=== PATIENT | male | born 1945 | race Caucasian/White ===

== ENCOUNTER → 2017-03-05 | Outpatient (CLI) | payer MEDICARE, BC ==
--- NOTE | 2017-03-06 13:10 | XR ---
First digit right hand HISTORY: Trauma and pain 2 views of the first digit right hand There are hypertrophic changes at the metacarpophalangeal joint, interphalangeal joint of the first d igit of the right hand. Alignment and bone mineralization are maintained. There is marginal spurring. No fracture or dislocation. Soft tissue swelling is noted. IMPRESSION: Osteoarthritis.
== END | disposition home or self-care (01) ==
LOC: RADXRYALE 14:59
PROVIDERS: ATTEND Physician Assistant Medical
DX: M19.041 Primary osteoarthritis, right hand (principal)

== ENCOUNTER → 2017-03-13 | Outpatient (CLI) | payer MEDICARE, BC ==
--- NOTE | 2017-03-13 14:30 | XR ---
EXAMINATION TYPE: XR chest 2V DATE OF EXAM: 03/13/2017 COMPARISON: Prior chest x-ray 01/02/2013, CT chest 01/14/2014 HISTORY: MRI clearance, V90.9 TECHNIQUE: Frontal and lateral views of the chest are obtained. FINDINGS: Patient is post median sternotomy. There is no pleural effusion, pneumothorax, or pneumoni a. Heart is enlarged. Pulmonary vascularity and naman are within normal limits. No radiopaque foreign body evident to suggest retained cardiac leads. IMPRESSION: No acute cardiopulmonary process.
== END ==
LOC: RADXRMAIN 12:31
PROVIDERS: ATTEND Orthopaedic Surgery Hand Surgery
DX: Z01.818 Encounter for other preprocedural examination (principal)
CPT/HCPCS: 71020

== ENCOUNTER → 2018-02-02 | Outpatient (CLI) | payer MEDICARE, BC ==
--- NOTE | 2018-02-02 08:43 | MR ---
EXAMINATION TYPE: MR angio head wo con DATE OF EXAM: 02/02/2018 COMPARISON: NONE HISTORY: 72-year-old male Peripheral vascular disease / Diplopia TECHNIQUE: High-resolution 3-D [id number] imaging focusing on the [place] were performed without contrast. Rotational 3-D reconstructions generated on a dedicated independent workstation. FINDINGS: The left vertebral artery is dominant. There is persistent origin of the bilateral posterior cerebral arteries. The right P1 segment i s tortuous and both are slightly hypoplastic, the right more so than the left. Mild atherosclerotic narrowing at the origin of the left posterior communicating artery and moderate irregular atherosclerotic narrowing along the P3 segment left posterior cerebral artery. Reconstructed images suggest moderate focal atherosclerotic narrowing at the origin of bilateral ante rior cerebral arteries. Mild atherosclerotic narrowing along the glenoid segment right internal carotid artery. No arterial occlusion or aneurysmal changes identified. IMPRESSION: 1. 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 2. Persistent origins of the bilateral golf club facer. The P1 segments are slightly hypoplastic, the righ t more so than the left. 3. 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 4. Reconstructed images suggest moderate atherosclerotic narrowing at the origin of the bilateral SHONDA s as well.
== END | disposition home or self-care (01) ==
LOC: RADMRIMAIN 07:52
PROVIDERS: ATTEND Physician Assistant
DX: I66.22 Occlusion and stenosis of left posterior cerebral artery (principal); Q28.3 Other malformations of cerebral vessels; R93.7 Abnormal findings on diagnostic imaging of other parts of musculoskeletal system; E11.59 Type 2 diabetes mellitus with other circulatory complications; H53.2 Diplopia
CPT/HCPCS: 70544

== ENCOUNTER → 2018-07-17 | Outpatient (CLI) | payer MEDICARE, BC ==
--- NOTE | 2018-07-17 09:26 | CT ---
EXAMINATION TYPE: CT sinus wo con DATE OF EXAM: 07/17/2018 COMPARISON: None HISTORY: Chronic sinusitis, infections CT DLP: 440.9 mGycm. Automated Exposure Control for Dose Reduction was Utilized. TECHNIQUE: CT scan of the sinuses is performed without contrast, axial images are obtained, coronal r eformatted images are also reviewed. FINDINGS: The paranasal sinuses including the frontal, ethmoid, sphenoid, and maxillary sinuses bila terally are well-aerated without abnormal opacification. The ostiomeatal complex is patent bilateral ly on the coronal images. Visualized portion of mastoid air cells show no abnormal opacification. The globes are intact bilate rally. There is a nasal septal deviation. Atherosclerotic change of the intracranial vasculature noted. Naso pharynx and oropharynx symmetric as visualized. IMPRESSION: 1. The sinuses are clear and the ostiomeatal complex is patent bilaterally. 2. Nasal septal deviation.
== END | disposition home or self-care (01) ==
LOC: RADCTMAIN 08:40
PROVIDERS: ATTEND Otolaryngology
DX: J34.2 Deviated nasal septum (principal); J32.9 Chronic sinusitis, unspecified
CPT/HCPCS: 70486

== ENCOUNTER 2018-09-03 09:32 | Day surgery (SDC) | payer MEDICARE, BC ==
[2018-08-31 14:16] VITALS: BMI 27.4
[~2018-09-03 09:32] MED LIST: DEXAMETHASONE SOD PHOSPHATE 10 MG/ML 1 ML VIAL IV ONE; DEXAMETHASONE SOD PHOSPHATE 4 MG/ML 1 ML VIAL IV ONE; FAMOTIDINE 20 MG/2 ML VIAL IV ONE; LACTATED RINGERS 1,000 ML IV SCH; LIDOCAINE 1% 20 ML VIAL (10MG/ML) FOR IV START INTRADERMA PRN; ONDANSETRON 4 MG/2 ML VIAL IVP ONE; SCOPOLAMINE 1.5MG/72HR PATCH TRANSDERM ONE
[2018-09-03] MEDS: OXYMETAZOLINE 0.05% NASL SPRAY 1 SPRAY BOTTLE NASAL ONE ×5 (11:09→11:34)
[2018-09-03 11:20] LABS: Glucose,Whole Blood 128 mg/dL (75-99)
[2018-09-03] MEDS ORDERED: DEXAMETHASONE SOD PHOS (MDV) 100 MG/10 ML VIAL ONE (11:36)
[2018-09-03] MEDS ORDERED: SUCCINYLCHOLINE CHLORIDE VIAL 200 MG/10 ML VIAL IV ONE (11:36)
[2018-09-03] MEDS ORDERED: PROPOFOL 10 MG/ML 20 ML VIAL IV ONE (11:36)
[2018-09-03] MEDS ORDERED: MIDAZOLAM 2 MG/2 ML VIAL ONE (11:36)
[2018-09-03] MEDS ORDERED: ePHEDrine SULFATE/0.9% NACL/PF 50 MG/5 ML SYRINGE IV ONE (11:36)
[2018-09-03] MEDS ORDERED: LIDOCAINE 1% INJ 10MG/ML (20 ML MDV) ONE (11:36)
[2018-09-03] MEDS ORDERED: fentaNYL (PF) 50 MCG/ML 2 ML AMP ONE (11:36)
[2018-09-03] MEDS ORDERED: LIDOCAINE 1%-EPI 1:100,000 30 ML VIAL SQ ONE ×2 (12:02)
[2018-09-03] MEDS ORDERED: BUPIVACAIN-EPI 0.25%-1:200,000 30 ML VIAL SQ ONE ×2 (12:02)
[2018-09-03] MEDS ORDERED: BACITRACIN 500 UNIT/GM OINT 28.4 GM TUBE TOPICAL ONE (12:19)
[2018-09-03] MEDS ORDERED: LACTATED RINGERS 1,000 ML IV ONE (12:22)
--- NOTE | 2018-09-03 13:03 | P.OP ---
Date of Procedure: 09/03/18 Preoperative Diagnosis: Deviated nasal septum Bilateral hypertrophy of inferior nasal turbinates Postoperative Diagnosis: Same Procedure(s) Performed: Septoplasty Bilateral submucosal resection of the inferior turbinates with outfracturing compression Anesthesia: MAMEA Surgeon: Adiel Ferrera Estimated Blood Loss (ml): 5 Pathology: other (sinonasal) Condition: stable Disposition: PACU Indications for Procedure: This patient presented to the office with persistent nasal obstruction. CAT scan did not reveal any signs of chronic sinusitis and ALLERGY testing did reveal some pollen ALLERGIES but cannot explain his perennial issues with nasal obstruction. He has large obstructive inferior turbinates deviated nasal septum and surgical correction was recommended as she has failed cortisone nasal sprays. Operative Findings: Severe deviated septum with large obstructive inferior turbinates. Septum is deviated to the right over 90%. Description of Procedure: DESCRIPTION OF OPERATION: This patient was taken to the operative room and placed in the supine position. A general inhalation anesthetic was administered to the patient by the department of anesthesia with a functioning IV line in place. The patient was monitored throughout the entire case by the department of anesthesia. The eyes were taped shut for protection. The patient was placed in a slight reverse Trendelenburg position. The patient had previously utilize Afrin nasal spray preoperatively. The nose was evaluated and the septum lateral nasal wall and inferior turbinates were injected with lidocaine 1% with epinephrine 1 100,000 bilaterally. Approximately 10 minutes were allowed wait for full vasoconstrictive effects to take place. At this point a caudal incision was made over the caudal portion of the left septum down to the mucoperichondrium. A mucoperichondrial flap was elevated on the left side and dissection was carried with use of tunnels posteriorly. We then made a crossover incision through the cartilage to the contralateral side and for the mucoperichondrial flap development was performed to the extent of visualization on the contralateral side. After the cartilage was freed with use of several crosshatching incisions and removal of some redundant strips of septal cartilage, the septum was straightened and placed back in the midline. The septum was sutured fixated to the ovarian groove. Excellent straightening occurred and the septum was visibly straight. Incision was closed with a 40 rapid Vicryl. We utilized a running nonlocking fashion for closure of the incision. A quilting stitch was used to reapproximate the septal flaps with use of a 40 rapid Vicryl. Intranasal splints were inserted and fixated at the end of the case. We utilized Tinoco nasal splints. There will be removed and the patient returns to the office. Attention was then paid to the inferior turbinates. The bilateral inferior turbinates were hypertrophic and obstructive. We entered the anterior portion of the inferior turbinates with use of a microdebrider. We remove bone and submucosal elements with use of a microdebrider bilaterally. The inferior turbinates underwent a submucosal resection with removal of submucosal tissue and bone. We obtained a much better and normal in size for breathing. The inferior turbinates were then outfractured and compressed with a DocTreees nasal elevator. Excellent airway was obtained and was symmetric bilaterally. No bleeding was encountered.
[2018-09-03 13:12] VITALS: TEMP 96.9
[2018-09-03] MEDS: HYDROmorphone 1 MG/ML 1 ML SYRINGE IVP PRN ×2 (13:29→13:53)
[2018-09-03 13:39] LABS: Glucose,Whole Blood 152 mg/dL (75-99)
[2018-09-03] MEDS ORDERED: METOPROLOL TARTRATE 5 MG/5 ML VIAL IVP ONE (13:45)
[2018-09-03] MEDS ORDERED: hydrALAZINE HCL 20 MG/ML 1 ML VIAL IVP ONE (14:08)
[2018-09-03] MEDS ORDERED: HYDROmorphone 1 MG/ML 1 ML SYRINGE IVP ONE (14:45)
[2018-09-03 15:08] VITALS: RESP 16
[2018-09-03 16:23] VITALS: BP 132/63; PULSE 90
== END 2018-09-03 16:35 | disposition home or self-care (01) ==
LOC: OR 09:32
PROVIDERS: ATTEND Otolaryngology
DX: J34.2 Deviated nasal septum (principal); J34.3 Hypertrophy of nasal turbinates; J30.1 Allergic rhinitis due to pollen; I25.10 Atherosclerotic heart disease of native coronary artery without angina pectoris; E78.5 Hyperlipidemia, unspecified; E11.51 Type 2 diabetes mellitus with diabetic peripheral angiopathy without gangrene; I10 Essential (primary) hypertension; Z79.4 Long term (current) use of insulin; Z79.899 Other long term (current) drug therapy; Z95.5 Presence of coronary angioplasty implant and graft; Z95.1 Presence of aortocoronary bypass graft; Z86.73 Personal history of transient ischemic attack (TIA), and cerebral infarction without residual deficits
CPT/HCPCS: 88300; 30520; 30140; J2250; J0330; J0360; J1100 ×2; J2405; J2001; J3010; J1170; J2704

== ENCOUNTER 2019-11-30 07:00 | Day surgery (SDC) | payer MEDICARE, BC ==
[2019-11-29 08:55] VITALS: BMI 28.7
[~2019-11-30 07:00] MED LIST changes: -DEXAMETHASONE SOD PHOSPHATE 10 MG/ML 1 ML VIAL IV ONE; -DEXAMETHASONE SOD PHOSPHATE 4 MG/ML 1 ML VIAL IV ONE; -FAMOTIDINE 20 MG/2 ML VIAL IV ONE; -ONDANSETRON 4 MG/2 ML VIAL IVP ONE; -SCOPOLAMINE 1.5MG/72HR PATCH TRANSDERM ONE
[2019-11-30 07:20] VITALS: TEMP 97.5
[2019-11-30 07:23] LABS: Glucose,Whole Blood 163 mg/dL (75-99)
[2019-11-30] MEDS ORDERED: PROPOFOL 10 MG/ML 20 ML VIAL IV ONE (07:30)
[2019-11-30] MEDS ORDERED: LIDOCAINE 1% INJ 10MG/ML (20 ML MDV) ONE (07:30)
--- NOTE | 2019-11-30 08:11 | P.PCN ---
Date of Procedure: 11/30/19 Description of Procedure: BRIEF HISTORY: Patient is a 74-year-old male presents for outpatient colonoscopy for screening for malignant neoplasm colon. Last colonoscopy approximately 7 years ago. He does report a history of polyps in the past. Denies any change in bowel habits, abdominal pain or family history of colon cancer. PROCEDURE PERFORMED: Colonoscopy with polypectomy. PREOPERATIVE DIAGNOSIS: Screening for malignant neoplasm of the colon, last colonoscopy 7 years ago with patient reporting a prior history of polyps. ESTIMATED BLOOD LOSS: Minimal. IV sedation per Anesthesia. PROCEDURE: After informed consent was obtained, the patient, was brought into the endoscopy unit. IV sedation was administered by Anesthesia under continuous monitoring. Digital rectal examination was normal. Initially the Olympus CF-190 flexible video colonoscope was then inserted in the rectum, gradually advanced into the cecum without any difficulty. Careful examination was performed as the scope was gradually being withdrawn. Ileocecal valve and the appendiceal orifice were visualized and appeared normal. Prep was excellent. Mucosa of the cecum, ascending colon, transverse colon, descending colon, sigmoid colon, and rectum appeared normal. Multiple small mouth diverticula in the left colon. 4 mm ascending colon polyp removed with cold snare polypectomy. 4 mm sigmoid colon polyp removed with cold snare polypectomy. Retroflexion was performed in the rectum and no lesions were seen, low-grade internal hemorrhoids noted. The patient tolerated the procedure well. IMPRESSION: 2 polyps removed from the ascending colon and sigmoid colon with cold snare polypectomy. Mild left colonic diverticulosis. RECOMMENDATIONS: Findings of this examination were discussed with the patient and his . Okay to resume diet. Okay to resume medications. Would recommend fiber suppl ementation in the setting of diverticulosis. Await pathology from polypectomies. Would recommend repeat colonoscopy in 7 years pending pathology from polypectomies.
[2019-11-30 08:13] VITALS: RESP 16
[2019-11-30 08:37] VITALS: BP 167/78; PULSE 67
== END 2019-11-30 09:32 | disposition home or self-care (01) ==
LOC: ORWHC2ENDO 07:00
PROVIDERS: ATTEND Internal Medicine
DX: Z12.11 Encounter for screening for malignant neoplasm of colon (principal); D12.2 Benign neoplasm of ascending colon; D12.5 Benign neoplasm of sigmoid colon; K57.30 Diverticulosis of large intestine without perforation or abscess without bleeding; K64.8 Other hemorrhoids; Z86.010 Personal history of colon polyps; I10 Essential (primary) hypertension; E78.5 Hyperlipidemia, unspecified; I73.9 Peripheral vascular disease, unspecified; G47.33 Obstructive sleep apnea (adult) (pediatric); E11.9 Type 2 diabetes mellitus without complications; K21.9 Gastro-esophageal reflux disease without esophagitis; I25.2 Old myocardial infarction; Z79.899 Other long term (current) drug therapy; Z79.4 Long term (current) use of insulin; Z95.1 Presence of aortocoronary bypass graft; Z98.890 Other specified postprocedural states; Z86.73 Personal history of transient ischemic attack (TIA), and cerebral infarction without residual deficits
CPT/HCPCS: 88305; 45385; J2001; J2704

== ENCOUNTER 2022-08-05 19:02 | Inpatient (IN) | payer MEDICARE, BC ==
[2022-08-05 19:36] LABS: Basophils % (A) 1 %; Eosinophils # (A) 0.2 k/uL (0-0.7); Eosinophils % (A) 3 %; HCT 42.8 % (39.0-53.0); HGB 13.7 gm/dL (13.0-17.5); Hypochromasia Slight; Lymphocytes # (A) 1.1 k/uL (1.0-4.8); Lymphocytes % (A) 17 %; MCHC 32.1 g/dL (31.0-37.0); MCV 90.6 fL (80.0-100.0); Mean Platelet Volume 8.9; Monocytes # (A) 0.4 k/uL (0-1.0); Monocytes % (A) 6 %; Neutrophils # (A) 4.7 k/uL (1.3-7.7); Neutrophils % (A) 72 %; Platelet Count 207 k/uL (150-450); RBC 4.72 m/uL (4.30-5.90); RDW 14.5 % (11.5-15.5); WBC 6.6 k/uL (3.8-10.6)
[2022-08-05 19:45] LABS: Albumin 3.6 g/dL (3.5-5.0); Calcium 8.6 mg/dL (8.4-10.2); Magnesium 2.2 mg/dL (1.6-2.3); Potassium 4.2 mmol/L (3.5-5.1); Total Bilirubin 1.1 mg/dL (0.2-1.3); Total Protein 6.2 g/dL (6.3-8.2)
[2022-08-05 19:56] LABS: INR 1.2 (<1.2); Partial Thromboplastin Time 24.8 sec (22.0-30.0); Prothrombin Time 12.4 sec (9.0-12.0)
--- NOTE | 2022-08-05 20:03 | ED ---
General Adult HPI - General Source: patient, RN notes reviewed, old records reviewed Mode of arrival: ambulatory Limitations: no limitations <Edgardo Parker - Last Filed: 08/05/22 20:55> <Edgardo Zaidi - Last Filed: 08/05/22 22:43> - General Chief complaint: Chest Pain Stated complaint: chest tightness Time Seen by Provider: 08/05/22 19:30 - History of Present Illness Initial comments: This is a 77 her old male with a past medical history significant for bypass surgery, stroke, diabetes, high cholesterol. Patient comes in today because for the last 10 days he's having difficulty breathing with any exertion. Patient states she's also had some chest tightness with exertion. Patient denies any actual chest pain or discomfort. Patient denies any recent fever chills or cough. Patient states he has been under quite a bit of stress lately but that does not explain the fact that he is completely short of breath anytime he exerts himself. Patient denies any abdominal pain. Patient denies nausea vomiting or diarrhea. Patient denies any lightheadedness or dizziness. Patient denies headache patient denies numbness weakness. Patient denies any lower extremity edema or calf tenderness. Patient denies any recent long trips or travel. (Edgardo Parker) - Related Data Home Medications Medication Instructions Recorded Confirmed Insulin Glargine [Lantus] 20 unit SQ HS PRN 11/24/14 08/05/22 Losartan [Cozaar] 25 mg PO DAILY 11/24/14 08/05/22 Metoprolol Tartrate [Lopressor] 25 mg PO BID 11/24/14 08/05/22 metFORMIN HCL [Glucophage] 1,000 mg PO AC-BID 11/24/14 08/05/22 Fenofibrate 160 mg PO DAILY 08/31/18 08/05/22 Dapagliflozin Propanediol [Farxiga] 10 mg PO DAILY@1200 08/05/22 08/05/22 Dextrose Chew [Glucose Chew Tab] 4 gm PO ONCE PRN 08/05/22 08/05/22 INSULIN ASPART (NovoLOG) [NovoLOG See Protocol SQ AC-TID 08/05/22 08/05/22 (formulary)] glipiZIDE [Glucotrol] 10 mg PO AC-BID 08/05/22 08/05/22 Allergies Allergy/AdvReac Type Severity Reaction Status Date / Time No Known Allergies Allergy Verified 08/05/22 21:11 Review of Systems ROS Other: All systems not noted in ROS Statement are negative. <Edgardo Parker - Last Filed: 08/05/22 20:55> ROS Other: All systems not noted in ROS Statement are negative. <Edgardo Zaidi - Last Filed: 08/05/22 22:43> ROS Statement: Those systems with pertinent positive or pertinent negative responses have been documented in the HPI. Past Medical History Past Medical History: CVA/TIA, Diabetes Mellitus, GERD/Reflux, Hyperlipidemia, Hypertension, Myocardial Infarction ([place]), Sleep Apnea/CPAP/BIPAP Additional Past Medical History / Comment(s): CVA 2012-NO RESIDUAL, PVD Last Myocardial Infarction Date:: 2012 History of Any Multi-Drug Resistant Organisms: None Reported Past Surgical History: Coronary Bypass/CABG, Heart Catheterization, Joint Replacement, Orthopedic Surgery Additional Past Surgical History / Comment(s): LT CAROTID ENDARTERECTOMY,CABG-3 VESSEL,GEORGE LOWER EXT VASCULAR PROCEDURES, SLEEP APNEA SURGERY,NASAL SURGERY,LT GREAT TOE JT REPLACEMENT,DENTAL IMPLANTS,ORIF LT ANKLE-HARDWARE LATER REMOVED, COLONOSCOPY, BILAT CATARACTS REMOVED-LENS IMPLANT Past Anesthesia/Blood Transfusion Reactions: No Reported Reaction Past Psychological History: No Psychological Hx Reported Smoking Status: Never smoker Past Alcohol Use History: Rare Past Drug Use History: None Reported - Past Family History Brother(s) Family Medical History: Cancer Additional Family Medical History / Comment(s): BRAIN <Edgardo Parker - Last Filed: 08/05/22 20:55> General Exam Limitations: no limitations <Edgardo Parker - Last Filed: 08/05/22 20:55> Limitations: no limitations General appearance: alert, in no apparent distress, anxious Head exam: Present: atraumatic, normocephalic, normal inspection Eye exam: Present: normal appearance, PERRL, EOMI. Absent: scleral icterus, conjunctival injection, periorbital swelling ENT exam: Present: normal exam, mucous membranes moist Neck exam: Present: normal inspection. Absent: tenderness, meningismus, lymphadenopathy Respiratory exam: Present: normal lung sounds bilaterally, rales, decreased breath sounds ([place]). Absent: respiratory distress, wheezes, rhonchi, stridor Cardiovascular Exam: Present: regular rate, normal rhythm, normal heart sounds. Absent: systolic murmur, diastolic murmur, rubs, gallop, clicks GI/Abdominal exam: Present: soft, normal bowel sounds. Absent: distended, tenderness, guarding, rebound, rigid Extremities exam: Present: normal inspection, full ROM, normal capillary refill. Absent: tenderness, pedal edema, joint swelling, calf tenderness Back exam: Present: normal inspection Neurological exam: Present: alert, oriented X3, CN II-XII intact Psychiatric exam: Present: normal affect, normal mood Skin exam: Present: warm, dry, intact, normal color. Absent: rash <Edgardo Zaidi - Last Filed: 08/05/22 22:43> - General Exam Comments Initial Comments: GENERAL: Patient is well-developed and well-nourished. Patient is nontoxic and well- hydrated and is in no acute distress. ENT: Neck is soft and supple. No significant lymphadenopathy is noted. Oropharynx is clear. Moist mucous membranes. Neck has full range of motion without eliciting any pain. EYES: The sclera were anicteric and conjunctiva were pink and moist. Extraocular movements were intact and pupils were equal round and reactive to light. Eyelids were unremarkable. PULMONARY: Unlabored respirations. Good breath sounds bilaterally. No audible rales rhonchi or wheezing was noted. CARDIOVASCULAR: There is a regular rate and rhythm without any murmurs gallops or rubs. ABDOMEN: Soft and nontender with normal bowel sounds. No palpable organomegaly was noted. There is no palpable pulsatile mass. SKIN: Skin is clear with no lesions or rashes and otherwise unremarkable. NEUROLOGIC: Patient is alert and oriented x3. Cranial nerves II through XII are grossly intact. Motor and sensory are also intact. Normal speech, volume and content. Symmetrical smile. MUSCULOSKELETAL: Normal extremities with adequate strength and full range of motion. No lower extremity swelling or edema. No calf tenderness. LYMPHATICS: No significant lymphadenopathy is noted PSYCHIATRIC: Normal psychiatric evaluation. (Edgardo Parker) Course <Edgardo Zaidi - Last Filed: 08/05/22 22:43> Vital Signs 08/05/22 08/05/22 08/05/22 19:07 20:24 20:43 Temperature 97.6 F Pulse Rate 92 160 H 90 Respiratory 20 20 18 Rate Blood Pressure 138/83 162/121 152/88 O2 Sat by Pulse 98 98 98 Oximetry - Reevaluation(s) Reevaluation #1: 08/05/22 22:40 Medical record is reviewed (Edgardo Zaidi) Reevaluation #2: 08/05/22 22:40 Patient informed results and questions are answered (Edgardo Zaidi) Reevaluation #3: 08/05/22 22:40 patient has no recurrent SVT here in the ER (Edgardo Zaidi) - Consultations Consultation #1: Spoke with [facility] [place] who agree to admit this patient (Edgardo Zaidi) Medical Decision Making - Lab Data Result diagrams: 08/05/22 19:26 08/05/22 19:26 <Edgardo Parker - Last Filed: 08/05/22 20:55> - Lab Data Result diagrams: 08/05/22 19:26 08/05/22 19:26 - Radiology Data Radiology results: report reviewed (CT chest negative for PE positive bilateral effusion and possible infiltrate), image reviewed <Edgardo Zaidi - Last Filed: 08/05/22 22:43> - Medical Decision Making EKG shows sinus rhythm with PVCs at 91 bpm GA interval is 141 QRSs 110 QT interval 434 QTC is 434 patient's EKG also shows PVCs. Patient has T-wave inversions in 23 and aVF as well as V5 and V6. Patient has no old EKG to compare to. Patient started having some discomfort while lying in bed soon EKG was interpreted by me. EKG shows supraventricular tachycardia at rate of 158 bpm QRS is 170 QT interval is 285 QTC is 373. There is T-wave inversions in leads V5 and V6 and in II, III, and F aVF Patient was in what appeared to be SVT at 160 beats a minute and a gave the patient 6 mg of adenosine slowed the heart down for a few seconds but it sped right back up to 160. I gave the patient 12 mg of adenosine slowed the heart down he was in a sinus rhythm he continued to display T-wave inversions in V5 and V6 II, III, and F aVF. A repeat EKG was done and interpreted by myself EKG showed a sinus rhythm 80 bpm GA interval is on a 43 QRSs 100 a QT interval 373 QTC is 419. Patient's EKG shows no ST segment elevation but does show T-wave inversions in V5 and V6 II, III, and F aVF Patient continues to feel a little tightness in the chest and shortness of breath just as he did when he came in. (Edgardo Parker) 77 male presents here today for evaluation. Patient presented for evaluation of shortness of breath chest pain exertional dyspnea. Episode of SVT here in the emergency prior. Chest x-ray showing effusions with evidence of CHF. Patient will be admitted for cardiology evaluation and treatment (Edgardo Zaidi) - Lab Data Lab Results 08/05/22 08/05/22 08/05/22 Range/Units 19:26 19:26 19:26 WBC 6.6 (3.8-10.6) k/uL RBC 4.72 (4.30-5.90) m/uL Hgb 13.7 (13.0-17.5) gm/dL Hct 42.8 (39.0-53.0) % MCV 90.6 (80.0-100.0) fL MCH 29.0 (25.0-35.0) pg MCHC 32.1 (31.0-37.0) g/dL RDW 14.5 (11.5-15.5) % Plt Count 207 (150-450) k/uL MPV 8.9 Neutrophils % 72 % Lymphocytes % 17 % Monocytes % 6 % Eosinophils % 3 % Basophils % 1 % Neutrophils # 4.7 (1.3-7.7) k/uL Lymphocytes # 1.1 (1.0-4.8) k/uL Monocytes # 0.4 (0-1.0) k/uL Eosinophils # 0.2 (0-0.7) k/uL Basophils # 0.0 (0-0.2) k/uL Hypochromasia Slight PT 12.4 H (9.0-12.0) sec INR 1.2 H (<1.2) APTT 24.8 (22.0-30.0) sec D-Dimer (<0.60) mg/L FEU Sodium 140 (137-145) mmol/L Potassium 4.2 (3.5-5.1) mmol/L Chloride 107 (98-107) mmol/L Carbon Dioxide 21 L (22-30) mmol/L Anion Gap 12 mmol/L BUN 33 H (9-20) mg/dL Creatinine 1.13 (0.66-1.25) mg/dL Est GFR (CKD-EPI)AfAm 73 (>60 ml/min/1.73 sqM) Est GFR (CKD-EPI)NonAf 63 (>60 ml/min/1.73 sqM) Glucose 273 H (74-99) mg/dL Calcium 8.6 (8.4-10.2) mg/dL Magnesium 2.2 (1.6-2.3) mg/dL Total Bilirubin 1.1 (0.2-1.3) mg/dL AST 51 (17-59) U/L ALT 54 H (4-49) U/L Alkaline Phosphatase 97 (38-126) U/L Troponin I (0.000-0.034) ng/mL NT-Pro-B Natriuret Pep pg/mL Total Protein 6.2 L (6.3-8.2) g/dL Albumin 3.6 (3.5-5.0) g/dL Coronavirus (PCR) (Not Detectd) 08/05/22 08/05/22 08/05/22 Range/Units 19:26 19:26 19:40 WBC (3.8-10.6) k/uL RBC (4.30-5.90) m/uL Hgb (13.0-17.5) gm/dL Hct (39.0-53.0) % MCV (80.0-100.0) fL MCH (25.0-35.0) pg MCHC (31.0-37.0) g/dL RDW (11.5-15.5) % Plt Count (150-450) k/uL MPV Neutrophils % % Lymphocytes % % Monocytes % % Eosinophils % % Basophils % % Neutrophils # (1.3-7.7) k/uL Lymphocytes # (1.0-4.8) k/uL Monocytes # (0-1.0) k/uL Eosinophils # (0-0.7) k/uL Basophils # (0-0.2) k/uL Hypochromasia PT (9.0-12.0) sec INR (<1.2) APTT (22.0-30.0) sec D-Dimer 1.63 H (<0.60) mg/L FEU Sodium (137-145) mmol/L Potassium (3.5-5.1) mmol/L Chloride (98-107) mmol/L Carbon Dioxide (22-30) mmol/L Anion Gap mmol/L BUN (9-20) mg/dL Creatinine (0.66-1.25) mg/dL Est GFR (CKD-EPI)AfAm (>60 ml/min/1.73 sqM) Est GFR (CKD-EPI)NonAf (>60 ml/min/1.73 sqM) Glucose (74-99) mg/dL Calcium (8.4-10.2) mg/dL Magnesium (1.6-2.3) mg/dL Total Bilirubin (0.2-1.3) mg/dL AST (17-59) U/L ALT (4-49) U/L Alkaline Phosphatase (38-126) U/L Troponin I 0.027 (0.000-0.034) ng/mL NT-Pro-B Natriuret Pep 4520 pg/mL Total Protein (6.3-8.2) g/dL Albumin (3.5-5.0) g/dL Coronavirus (PCR) (Not Detectd) 08/05/22 Range/Units 20:14 WBC (3.8-10.6) k/uL RBC (4.30-5.90) m/uL Hgb (13.0-17.5) gm/dL Hct (39.0-53.0) % MCV (80.0-100.0) fL MCH (25.0-35.0) pg MCHC (31.0-37.0) g/dL RDW (11.5-15.5) % Plt Count (150-450) k/uL MPV Neutrophils % % Lymphocytes % % Monocytes % % Eosinophils % % Basophils % % Neutrophils # (1.3-7.7) k/uL Lymphocytes # (1.0-4.8) k/uL Monocytes # (0-1.0) k/uL Eosinophils # (0-0.7) k/uL Basophils # (0-0.2) k/uL Hypochromasia PT (9.0-12.0) sec INR (<1.2) APTT (22.0-30.0) sec D-Dimer (<0.60) mg/L FEU Sodium (137-145) mmol/L Potassium (3.5-5.1) mmol/L Chloride (98-107) mmol/L Carbon Dioxide (22-30) mmol/L Anion Gap mmol/L BUN (9-20) mg/dL Creatinine (0.66-1.25) mg/dL Est GFR (CKD-EPI)AfAm (>60 ml/min/1.73 sqM) Est GFR (CKD-EPI)NonAf (>60 ml/min/1.73 sqM) Glucose (74-99) mg/dL Calcium (8.4-10.2) mg/dL Magnesium (1.6-2.3) mg/dL Total Bilirubin (0.2-1.3) mg/dL AST (17-59) U/L ALT (4-49) U/L Alkaline Phosphatase (38-126) U/L Troponin I (0.000-0.034) ng/mL NT-Pro-B Natriuret Pep pg/mL Total Protein (6.3-8.2) g/dL Albumin (3.5-5.0) g/dL Coronavirus (PCR) Not Detected (Not Detectd) Critical Care Time Critical Care Time: Yes Total Critical Care Time: 35 <Edgardo Parker - Last Filed: 08/05/22 20:55> Disposition <Edgardo Parker - Last Filed: 08/05/22 20:55> Is patient prescribed a controlled substance at d/c from ED?: No Time of Disposition: 22:50 <Edgardo Zaidi - Last Filed: 08/05/22 22:43> Clinical Impression: SVT (supraventricular tachycardia), Chest pain, CHF (congestive heart failure), Bilateral pleural effusion Disposition: ADMITTED IP TO THIS HOSP Condition: Fair Referrals: Maximo Renteria DO [Primary Care Provider] - 1-2 days
--- NOTE | 2022-08-05 20:15 | XR ---
EXAMINATION TYPE: XR chest 2V DATE OF EXAM: 08/05/2022 COMPARISON: 03/13/2017 HISTORY: Chest pain TECHNIQUE: 2 views FINDINGS: There is some blunting left posterior phrenic angle. There is mild blunting right costophre aura angle. There is minimal pulmonary congestion. Heart is slightly enlarged. There are chest leads. Bony thorax is intact. IMPRESSION: There are small bilateral pleural effusions and mild congestion and consistent with conge stive heart failure which is new compared to the old exam.
[2022-08-05] MEDS ORDERED: ADENOSINE 3 MG/ML 2 ML VIAL IVP STA ×2 (21:01)
--- NOTE | 2022-08-05 21:41 | CT ---
EXAMINATION TYPE: CT chest angio for PE DATE OF EXAM: 08/05/2022 COMPARISON: 01/14/2014 HISTORY: chest pain/ SOB and elevated D-dimer. CT DLP: 505.3 mGycm Automated exposure control for dose reduction was used. CONTRAST: Performed with IV Contrast, patient injected with 80 mL of Isovue 370. There are 3-D post processed images. There is extensive interstitial infiltrates in both lungs. There is right side mild to moderate pleur al effusion. There is some atelectasis at both lung bases. Heart is borderline enlarged. No pericardi al effusion. No filling defect seen in the pulmonary arteries. Thoracic aorta shows no aneurysm or di ssection. The ascending aorta measures 3.9 cm. The thoracic spine is intact. There is degenerative sp urring throughout the thoracic spine. There are sternal wires. There is single large calcified gallstone. There is atherosclerotic vascular calcification. IMPRESSION: Bilateral pleural effusions with pulmonary predominately interstitial infiltrates. There is some mild atelectasis at the lung bases. Mild cardiomegaly appears new compared to old exam. No evidence of pulmonary embolism. Lung disease is mostly new compared to old exam.
[2022-08-05] MEDS ORDERED: ONDANSETRON 4 MG/2 ML VIAL IVP PRN (22:36)
[2022-08-05] MEDS ORDERED: MORPHINE SULFATE 4 MG/ML SYRINGE IV PRN (22:36)
[2022-08-05] MEDS ORDERED: NALOXONE 0.4 MG/ML 1 ML VIAL IV PRN (22:36)
[2022-08-06 06:07] LABS: Basophils % (A) 1 %; Eosinophils # (A) 0.2 k/uL (0-0.7); Eosinophils % (A) 3 %; HCT 42.3 % (39.0-53.0); HGB 13.5 gm/dL (13.0-17.5); Hypochromasia Moderate; Lymphocytes # (A) 1.4 k/uL (1.0-4.8); Lymphocytes % (A) 25 %; MCH 29.4 pg (25.0-35.0); MCHC 31.9 g/dL (31.0-37.0); MCV 92.3 fL (80.0-100.0); Mean Platelet Volume 8.5; Monocytes # (A) 0.4 k/uL (0-1.0); Monocytes % (A) 7 %; Neutrophils # (A) 3.5 k/uL (1.3-7.7); Neutrophils % (A) 62 %; Platelet Count 201 k/uL (150-450); RBC 4.58 m/uL (4.30-5.90); RDW 14.5 % (11.5-15.5); WBC 5.7 k/uL (3.8-10.6)
[2022-08-06 06:19] LABS: Albumin 3.5 g/dL (3.5-5.0); Calcium 8.5 mg/dL (8.4-10.2); Magnesium 2.2 mg/dL (1.6-2.3); Phosphorus 3.5 mg/dL (2.5-4.5); Potassium 4.3 mmol/L (3.5-5.1); Total Bilirubin 0.8 mg/dL (0.2-1.3)
[2022-08-06] MEDS: SODIUM CHLORIDE 0.9% 1,000 ML IV SCH ×2 (07:35→23:56)
[2022-08-06 08:43] LABS: Glucose,Whole Blood 118 mg/dL (70-110)
[2022-08-06] MEDS ORDERED: FUROSEMIDE 10 MG/ML 4 ML VIAL IV SCH (10:56)
[2022-08-06] MEDS ORDERED: METOPROLOL TARTRATE 25 MG TAB PO SCH (11:00)
[2022-08-06] MEDS: METOPROLOL TARTRATE 50 MG TAB PO SCH ×2 (11:39→21:12)
[2022-08-06] MEDS: FUROSEMIDE 10 MG/ML 2 ML VIAL IV SCH ×2 (11:39→21:12)
[2022-08-06] MEDS: LOSARTAN 25 MG TAB PO SCH (11:39)
[2022-08-06 11:47] LABS: Glucose,Whole Blood 197 mg/dL (70-110)
[2022-08-06] MEDS ORDERED: DEXTROSE 50% SYRINGE 50 ML IVP PRN ×2 (11:51)
[2022-08-06] MEDS: FENOFIBRATE 160 MG TAB PO SCH (12:05)
[2022-08-06] MEDS: DAPAGLIFLOZIN PROPANEDIOL 10 MG TABLET PO SCH (12:06)
[2022-08-06] MEDS: INSULIN ASPART (NovoLOG) 100 UNIT/ML VIAL SQ SCH ×3 (12:10→20:45)
--- NOTE | 2022-08-06 12:51 | P.CRDCN ---
History of Present Illness History of present illness: HISTORY OF PRESENT ILLNESS: This is a 77-year-old male with a past medical history significant for coronary artery disease with previous three-vessel CABG in 2013, CVA, left CEA, hypertension, hyperlipidemia, diabetes, and peripheral vascular disease with previous intervention to his lower extremities. Patient follows with a Dr. Romero. We have been asked to see the patient in consultation for SVT. Patient examined at the bedside. Patient states over the last week he has felt very tired and weak. He reports not having any energy. He states he has had some intermittent chest pains as well. He reports feeling SOB with exertion such as walking up a flight of stairs. He does not recall feeling his heart racing. His family member at the bedside reports that yesterday he broke out into a cold sweat and had the chills. The patient came to the ER for further evaluation. He was found to be in SVT. He received adenosine x 2 with conversion to sinus mechanism. He reports having a stress test and echo recently at Dr. Romero office which he reports was normal. * EKG reveals SVT. Repeat EKG reveals sinus mechanism. * Chest xray small bilateral pleural effusions and mild congestion consistent with congestive heart failure which is new compared to old exam * Chest CT: Negative for PE * Laboratory data: WBC 5.7. Hemoglobin 13.5. Platelet count 201. Sodium 141. Potassium 4.3. BUN 27. Creatinine 1.1. TSH 2.610. Troponin negative 3. ProBNP 4520 * Current home cardiac medications include metoprolol tartrate 25 mg twice a day, losartan 25 mg daily, fenofibrate 160 mg daily, and Farxiga 10mg daily REVIEW OF SYSTEMS: At the time of my exam: CONSTITUTIONAL: Denies fever or chills. HEENT: Denies blurred vision, vision changes, or eye pain. Denies hemoptysis CARDIOVASCULAR: Denies chest pain. Denies orthopnea. Denies PND. Denies palpitations RESPIRATORY: Denies shortness of breath. GASTROINTESTINAL: Denies abdominal pain. Denies nausea or vomiting. HEMATOLOGIC: Denies bleeding disorders. GENITOURINARY: Denies any blood in urine. SKIN: Denies pruitis. Denies rash. PHYSICAL EXAM: VITAL SIGNS: Reviewed. GENERAL: Well-developed in no acute distress. HEENT: Head is normocephalic. Pupils are equal, round. Sclerae anicteric. Mucous membranes of the mouth are moist. Neck supple. No JVD or thyromegaly LUNGS: Respirations even and unlabored. Lungs diminished at the bases with a few crackles. HEART: Regular rate and rhythm. S1 and S2 heard. ABDOMEN: Soft. Nondistended. Nontender. EXTREMITIES: Normal range of motion. No clubbing or cyanosis. Peripheral pulses intact. No lower extremity edema NEUROLOGIC: Awake and alert. Oriented x 3. 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 Romero Begin IV lasix 20mg Q12 hours Daily weights, accurate I&O, and monitoring of kidney function Resume home cardiac medications Increase metoprolol to 50mg BID Add aspirin 81mg daily Check lipid panel Check TSH Further recommendations pending patient course Nurse practitioner note has been reviewed by physician. Signing provider agrees with the documented findings, assessment, and plan of care. Past Medical History Past Medical History: CVA/TIA, Diabetes Mellitus, GERD/Reflux, Hyperlipidemia, Hypertension, Myocardial Infarction ([place]), Sleep Apnea/CPAP/BIPAP Additional Past Medical History / Comment(s): CVA 2012-NO RESIDUAL, PVD Last Myocardial Infarction Date:: 2012 History of Any Multi-Drug Resistant Organisms: None Reported Past Surgical History: Coronary Bypass/CABG, Heart Catheterization, Joint Replacement, Orthopedic Surgery Additional Past Surgical History / Comment(s): LT CAROTID ENDARTERECTOMY,CABG-3 VESSEL,GEORGE LOWER EXT VASCULAR PROCEDURES, SLEEP APNEA SURGERY,NASAL SURGERY,LT GREAT TOE JT REPLACEMENT,DENTAL IMPLANTS,ORIF LT ANKLE-HARDWARE LATER REMOVED, COLONOSCOPY, BILAT CATARACTS REMOVED-LENS IMPLANT Past Anesthesia/Blood Transfusion Reactions: No Reported Reaction Past Psychological History: No Psychological Hx Reported Smoking Status: Never smoker Past Alcohol Use History: Rare Past Drug Use History: None Reported - Past Family History Brother(s) Family Medical History: Cancer Additional Family Medical History / Comment(s): BRAIN Medications and Allergies Home Medications Medication Instructions Recorded Confirmed Type Insulin Glargine [Lantus] 20 unit SQ HS PRN 11/24/14 08/05/22 History Losartan [Cozaar] 25 mg PO DAILY 11/24/14 08/05/22 History Metoprolol Tartrate [Lopressor] 25 mg PO BID 11/24/14 08/05/22 History metFORMIN HCL [Glucophage] 1,000 mg PO AC-BID 11/24/14 08/05/22 History Fenofibrate 160 mg PO DAILY 08/31/18 08/05/22 History Dapagliflozin Propanediol [Farxiga] 10 mg PO DAILY@1200 08/05/22 08/05/22 History Dextrose Chew [Glucose Chew Tab] 4 gm PO ONCE PRN 08/05/22 08/05/22 History INSULIN ASPART (NovoLOG) [NovoLOG See Protocol SQ AC-TID 08/05/22 08/05/22 History (formulary)] glipiZIDE [Glucotrol] 10 mg PO AC-BID 08/05/22 08/05/22 History Allergies Allergy/AdvReac Type Severity Reaction Status Date / Time No Known Allergies Allergy Verified 08/05/22 21:11 Physical Exam Vitals: Vital Signs Temp Pulse Resp BP Pulse Ox 08/06/22 09:45 85 15 159/88 97 08/06/22 05:37 76 16 139/76 98 08/06/22 02:00 101 H 18 129/79 98 08/06/22 01:00 96 16 120/77 98 08/05/22 23:00 98 16 128/83 98 08/05/22 22:00 98 16 128/78 98 08/05/22 20:43 90 18 152/88 98 08/05/22 20:24 160 H 20 162/121 98 08/05/22 19:07 97.6 F 92 20 138/83 98 Intake and Output 08/05/22 08/06/22 08/06/22 22:59 06:59 14:59 Other: Weight 83.915 kg 83.915 kg Results 08/06/22 05:32 08/06/22 05:32 Cardiac Enzymes 08/05/22 08/05/22 08/06/22 Range/Units 19:26 19:26 01:16 AST 51 (17-59) U/L Troponin I 0.027 0.030 (0.000-0.034) ng/mL 08/06/22 08/06/22 Range/Units 05:32 05:32 AST 34 (17-59) U/L Troponin I 0.027 (0.000-0.034) ng/mL Coagulation 08/05/22 Range/Units 19:26 PT 12.4 H (9.0-12.0) sec APTT 24.8 (22.0-30.0) sec CBC 08/05/22 08/06/22 Range/Units 19:26 05:32 WBC 6.6 5.7 (3.8-10.6) k/uL RBC 4.72 4.58 (4.30-5.90) m/uL Hgb 13.7 13.5 (13.0-17.5) gm/dL Hct 42.8 42.3 (39.0-53.0) % Plt Count 207 201 (150-450) k/uL Comprehensive Metabolic Panel 08/05/22 08/06/22 Range/Units 19:26 05:32 Sodium 140 141 (137-145) mmol/L Potassium 4.2 4.3 (3.5-5.1) mmol/L Chloride 107 107 (98-107) mmol/L Carbon Dioxide 21 L 25 (22-30) mmol/L BUN 33 H 27 H (9-20) mg/dL Creatinine 1.13 1.11 (0.66-1.25) mg/dL Glucose 273 H 129 H (74-99) mg/dL Calcium 8.6 8.5 (8.4-10.2) mg/dL AST 51 34 (17-59) U/L ALT 54 H 54 H (4-49) U/L Alkaline Phosphatase 97 96 (38-126) U/L Total Protein 6.2 L 6.0 L (6.3-8.2) g/dL Albumin 3.6 3.5 (3.5-5.0) g/dL Current Medications Generic Name Dose Route Start Last Admin Trade Name Freq PRN Reason Stop Dose Admin Sodium Chloride 1,000 mls @ 20 mls/hr 08/05/22 22:45 08/06/22 07:35 Saline 0.9% IV 20 mls/hr .Q24H SATURNINO Administration Morphine Sulfate 4 mg 08/05/22 22:36 Morphine Sulfate 4 Mg/Ml Syringe IV Q4HR PRN Severe Pain (Scale 7 to 10) Naloxone HCl 0.2 mg 08/05/22 22:36 Naloxone 0.4 Mg/Ml 1 Ml Vial IV Q2M PRN Opioid Reversal Ondansetron HCl 4 mg 08/05/22 22:36 Ondansetron 4 Mg/2 Ml Vial IVP Q8HR PRN Nausea And Vomiting Intake and Output 08/05/22 08/06/22 08/06/22 22:59 06:59 14:59 Other: Weight 83.915 kg 83.915 kg Patient Weight 08/07/22 06:59 Weight 83.915 kg 08/06/22 05:32 08/06/22 05:32
--- NOTE | 2022-08-06 13:39 | P.HPIM ---
History of Present Illness H&P Date: 08/06/22 Chief Complaint: SOB Patient is a 77-year-old male with history of CAD status post CABG, CVA, CEA, insulin-dependent diabetes, hypertension, dyslipidemia, peripheral vascular disease presented with shortness of breath and chest pain with exertion. Patient claims that over the last 1 week he has been feeling a little under the weather. 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 Chest pain was described as tightness, substernal, 6/10, nonradiating. He denies any significant palpitations, lightheadedness, fevers, chills, abdominal pain, nausea, vomiting, bowel or bladder issues. He was seen by his director recreation 2 years ago, when he had his stress test and echo which were normal. He denies any smoking, alcohol use, illicit drug use. In the ED, patient was in SVT, required adenosine for conversion. Chest x-ray concerning for congestive heart failure. CTA did not show any PE. Initial troponin were negative. TSH normal. Rest of the lab work was otherwise unremarkable. Patient seen and examined at bedside. Pertinent positives and negatives as discussed in HPI, a complete review of systems was performed and all other systems are negative. Vital signs reviewed General: nontoxic, no distress, appears at stated age Derm: warm, dry Head: atraumatic, normocephalic, symmetric Eyes: EOMI, no lid lag, anicteric sclera, pupils equal round reactive to light ENT: Nose and ears atraumatic Neck: No thyromegaly, supple Mouth: no lip lesion, mucus membranes moist Cardiovascular: S1S2 reg, no murmur, trace edema Lungs: Minimal rales at the bases bilaterally, no wheeze, no accessory muscle use Abdominal: soft, nontender to palpation, no guarding, no appreciable organomegaly Ext: no gross muscle atrophy, muscle strength muscle strength 5 out of 5 in all 4 extremities, no contractures Neuro: CN II-XII grossly intact Psych: Alert, oriented, appropriate affect Assessment/Plan: Acute chest pain Dyspnea on exertion SVT, now status post conversion Pulmonary edema new onset CHF exacerbation -telemetry - Trop negative so far - BNP pending - Echo pending - Cardiology consult - lasix, increased metoprolol - ASA - patient unable to tolerate statin - currently on room air Diabetes, insulin-dependent - holding metformin and glipizide - continue home lantus, and SGLT2i - on SSI - A1c pending CAD status post CABG History of CVA, no gross deficits History of CEA Peripheral vascular disease Dyslipidemia Hypertension - medications reviewed and reconciled The patient is admitted with an anticipated greater than 2 midnight stay for evaluation of new onset CHF. Surrogate decision-maker: Daughters CODE STATUS:full code DVT prophylaxis: heparin sq Anticipated discharge date: 2+ days Anticipated discharge place: home A total of 47 minutes was spent on the care of this complex patient more than 50% of the time was spent in counseling and care coordination. Past Medical History Past Medical History: CVA/TIA, Diabetes Mellitus, GERD/Reflux, Hyperlipidemia, Hypertension, Myocardial Infarction ([place]), Sleep Apnea/CPAP/BIPAP Additional Past Medical History / Comment(s): CVA 2012-NO RESIDUAL, PVD Last Myocardial Infarction Date:: 2012 History of Any Multi-Drug Resistant Organisms: None Reported Past Surgical History: Coronary Bypass/CABG, Heart Catheterization, Joint Replacement, Orthopedic Surgery Additional Past Surgical History / Comment(s): LT CAROTID ENDARTERECTOMY,CABG-3 VESSEL,GEORGE LOWER EXT VASCULAR PROCEDURES, SLEEP APNEA SURGERY,NASAL SURGERY,LT GREAT TOE JT REPLACEMENT,DENTAL IMPLANTS,ORIF LT ANKLE-HARDWARE LATER REMOVED, COLONOSCOPY, BILAT CATARACTS REMOVED-LENS IMPLANT Past Anesthesia/Blood Transfusion Reactions: No Reported Reaction Past Psychological History: No Psychological Hx Reported Smoking Status: Never smoker Past Alcohol Use History: Rare Past Drug Use History: None Reported - Past Family History Brother(s) Family Medical History: Cancer Additional Family Medical History / Comment(s): BRAIN Medications and Allergies Home Medications Medication Instructions Recorded Confirmed Type Insulin Glargine [Lantus] 20 unit SQ HS PRN 11/24/14 08/05/22 History Losartan [Cozaar] 25 mg PO DAILY 11/24/14 08/05/22 History Metoprolol Tartrate [Lopressor] 25 mg PO BID 11/24/14 08/05/22 History metFORMIN HCL [Glucophage] 1,000 mg PO AC-BID 11/24/14 08/05/22 History Fenofibrate 160 mg PO DAILY 08/31/18 08/05/22 History Dapagliflozin Propanediol [Farxiga] 10 mg PO DAILY@1200 08/05/22 08/05/22 History Dextrose Chew [Glucose Chew Tab] 4 gm PO ONCE PRN 08/05/22 08/05/22 History INSULIN ASPART (NovoLOG) [NovoLOG See Protocol SQ AC-TID 08/05/22 08/05/22 History (formulary)] glipiZIDE [Glucotrol] 10 mg PO AC-BID 08/05/22 08/05/22 History Allergies Allergy/AdvReac Type Severity Reaction Status Date / Time No Known Allergies Allergy Verified 08/05/22 21:11 Physical Exam Vitals: Vital Signs Temp Pulse Pulse Resp BP BP Pulse Ox 08/06/22 11:00 97 F L 90 17 144/88 96 08/06/22 09:45 85 15 159/88 97 08/06/22 05:37 76 16 139/76 98 08/06/22 02:00 101 H 18 129/79 98 08/06/22 01:00 96 16 120/77 98 08/05/22 23:00 98 16 128/83 98 08/05/22 22:00 98 16 128/78 98 08/05/22 20:43 90 18 152/88 98 08/05/22 20:24 160 H 20 162/121 98 08/05/22 19:07 97.6 F 92 20 138/83 98 Intake and Output 08/05/22 08/06/22 08/06/22 22:59 06:59 14:59 Output Total 300 Balance -300 Output: Urine 300 Other: Weight 83.915 kg 83.915 kg Results CBC & Chem 7: 08/06/22 05:32 08/06/22 05:32 Labs: Abnormal Lab Results - Last 24 Hours (Table) 08/05/22 08/05/22 08/05/22 Range/Units 19:26 19:26 19:40 PT 12.4 H (9.0-12.0) sec INR 1.2 H (<1.2) D-Dimer 1.63 H (<0.60) mg/L FEU Carbon Dioxide 21 L (22-30) mmol/L BUN 33 H (9-20) mg/dL Glucose 273 H (74-99) mg/dL POC Glucose (mg/dL) (70-110) mg/dL ALT 54 H (4-49) U/L Total Protein 6.2 L (6.3-8.2) g/dL 08/06/22 08/06/22 08/06/22 Range/Units 05:32 08:41 11:45 PT (9.0-12.0) sec INR (<1.2) D-Dimer (<0.60) mg/L FEU Carbon Dioxide (22-30) mmol/L BUN 27 H (9-20) mg/dL Glucose 129 H (74-99) mg/dL POC Glucose (mg/dL) 118 H 197 H (70-110) mg/dL ALT 54 H (4-49) U/L Total Protein 6.0 L (6.3-8.2) g/dL
[2022-08-06 16:32] LABS: Glucose,Whole Blood 172 mg/dL (70-110)
--- NOTE | 2022-08-06 17:04 | CA ---
Transthoracic Echo Report Name: Danielito Scott Age: 77 Gender: M : 1945 Exam Date: 08/06/2022 14:52 Exam Location: [facility] Ht (in): 70 Wt (lb): 185 Ordering Physician: Ailyn Torrez Attending/Referring Phys: [id number], [employer]ore [employer]ist Brittney Chaves RDCS Procedure CPT: Indications: LV function Cardiac Hx: Technical Quality: Contrast 1: Total Dose (mL): Contrast 2: Total Dose (mL): MEASUREMENTS (Male / Female) Normal Values 2D ECHO LV Diastolic Diameter PLAX 5.5 cm 4.2 - 5.9 / 3.9 - 5.3 cm LV Systolic Diameter PLAX 4.4 cm IVS Diastolic Thickness 1.2 cm 0.6 - 1.0 / 0.6 - 0.9 cm LVPW Diastolic Thickness 1.0 cm 0.6 - 1.0 / 0.6 - 0.9 cm LV Relative Wall Thickness 0.4 RV Internal Dim ED PLAX 3.5 cm LA Volume 82.3 cm??? 18 - 58 / 22 - 52 cm??? M-MODE Aortic Root Diameter MM 3.3 cm LA Systolic Diameter MM 5.3 cm LA Ao Ratio MM 1.6 AV Cusp Separation MM 1.9 cm DOPPLER AV Peak Velocity 95.9 cm/s AV Peak Gradient 3.7 mmHg LVOT Peak Velocity 40.0 cm/s LVOT Peak Gradient 0.6 mmHg MV E' Velocity 3.4 cm/s TR Peak Velocity 243.1 cm/s TR Peak Gradient 23.6 mmHg Right Ventricular Systolic Press 28.6 mmHg FINDINGS Left Ventricle Mildly increased left ventricular wall thickness. Severely reduced global left ventricular systolic function. Left ventricular ejection fraction is estimated at 20-25 %. Right Ventricle Mild right ventricular dilatation. Right ventricular systolic pressure within normal limits. Right Atrium Normal right atrial size. Left Atrium Severely increased left atrial volume. Mitral Valve Mitral valve thickened. Mild mitral annular calcification. Mild mitral regurgitation. Aortic Valve Trileaflet aortic valve. No aortic regurgitation. No aortic stenosis. Aortic valve sclerosis. Tricuspid Valve Structurally normal tricuspid valve. Mild tricuspid regurgitation. Pulmonic Valve Trace pulmonic regurgitation. Pericardium No pericardial effusion. Aorta Normal size aortic root and proximal ascending aorta. CONCLUSIONS Severe LV systolic dysfunction Mild mitral regurgitation Aortic sclerosis without significant stenosis Previewed by: Dr. Saurav Drake MD (Electronically Signed) Final Date: 06 August 2022 17:03
[2022-08-06] MEDS: HEPARIN SODIUM,PORCINE/PF 5,000 UNIT/0.5 ML SYRINGE SQ SCH (17:09)
[2022-08-06 18:32] LABS: LDL Cholesterol,Calculated 134.8 mg/dL (0.0-131.0); VLDL Calculation 18.84 mg/dL (5.00-40.00)
[2022-08-06 20:18] LABS: Glucose,Whole Blood 75 mg/dL (70-110)
[2022-08-06] MEDS ORDERED: INSULIN DETEMIR (LEVEMIR) 100 UNIT/ML SYR SQ PRN (21:00)
[2022-08-07 00:07] LABS: Glucose,Whole Blood 125 mg/dL (70-110)
[2022-08-07] MEDS: HEPARIN SODIUM,PORCINE/PF 5,000 UNIT/0.5 ML SYRINGE SQ SCH ×3 (00:10→17:18)
[2022-08-07 06:11] LABS: Glucose,Whole Blood 115 mg/dL (70-110)
[2022-08-07] MEDS: INSULIN ASPART (NovoLOG) 100 UNIT/ML VIAL SQ SCH ×4 (07:25→20:10)
[2022-08-07] MEDS: FUROSEMIDE 10 MG/ML 2 ML VIAL IV SCH (08:11)
[2022-08-07] MEDS: FENOFIBRATE 160 MG TAB PO SCH (08:11)
[2022-08-07] MEDS: METOPROLOL TARTRATE 50 MG TAB PO SCH ×2 (08:11→20:13)
[2022-08-07] MEDS: LOSARTAN 25 MG TAB PO SCH (08:11)
[2022-08-07] MEDS: ASPIRIN 81 MG PO SCH (08:11)
[2022-08-07 09:03] LABS: Calcium 8.3 mg/dL (8.4-10.2); Potassium 4.4 mmol/L (3.5-5.1)
[2022-08-07] MEDS: LOSARTAN 50 MG TAB PO SCH (09:03)
[2022-08-07] MEDS ORDERED: LOSARTAN 25 MG TAB PO STA (09:03)
[2022-08-07] MEDS: SPIRONOLACTONE 25 MG TAB PO SCH (09:31)
[2022-08-07] MEDS: ATORVASTATIN 40 MG TAB PO SCH (09:33)
--- NOTE | 2022-08-07 10:29 | P.PN ---
Subjective Progress Note Date: 08/07/22 HISTORY OF PRESENT ILLNESS: This is a 77-year-old male with a past medical history significant for coronary artery disease with previous three-vessel CABG in 2012, CVA, left CEA, hyp ertension, hyperlipidemia, diabetes, and peripheral vascular disease with previous intervention to his lower extremities. Patient follows with a Dr. Romero. We have been asked to see the patient in consultation for SVT. Patient examined at the bedside. Patient states over the last week he has felt very tired and weak. He reports not having any energy. He states he has had some intermittent chest pains as well. He reports feeling SOB with exertion such as walking up a flight of stairs. He does not recall feeling his heart racing. His family member at the bedside reports that yesterday he broke out into a cold sweat and had the chills. The patient came to the ER for further evaluation. He was found to be in SVT. He received adenosine x 2 with conversion to sinus mechanism. He reports having a stress test and echo recently at Dr. Romero office which he reports was normal. * EKG reveals SVT. Repeat EKG reveals sinus mechanism. * Chest xray small bilateral pleural effusions and mild congestion consistent with congestive heart failure which is new compared to old exam * Chest CT: Negative for PE * Laboratory data: WBC 5.7. Hemoglobin 13.5. Platelet count 201. Sodium 141. Potassium 4.3. BUN 27. Creatinine 1.1. TSH 2.610. Troponin negative 3. ProBNP 4520 * Current home cardiac medications include metoprolol tartrate 25 mg twice a day, losartan 25 mg daily, fenofibrate 160 mg daily, and Farxiga 10mg daily 08/07/2022 Patient examined this morning at the bedside. Patient denies chest pain or pressure. Denies SOB. No further episodes of SVT. TSH normal at 2.610. Patient remains on IV lasix. 24 hour fluid balance is -540cc. Creatinine 1.32. Reports from Dr. Romero office obtained. Patient underwent stress test in July 2021 which was negative for ischemia. However, his EF was noted to be 28% at that time. Echocardiogram completed reveals ejection fraction 20-25% with mild MR and mild TR. PHYSICAL EXAM: VITAL SIGNS: Reviewed. GENERAL: Well-developed in no acute distress. HEENT: Head is normocephalic. Pupils are equal, round. Sclerae anicteric. Mucous membranes of the mouth are moist. Neck supple. No JVD or thyromegaly LUNGS: Respirations even and unlabored. Lungs diminished at the bases with a few crackles. HEART: Regular rate and rhythm. S1 and S2 heard. ABDOMEN: Soft. Nondistended. Nontender. EXTREMITIES: Normal range of motion. No clubbing or cyanosis. Peripheral pulses intact. No lower extremity edema NEUROLOGIC: Awake and alert. Oriented x 3. ASSESSMENT: Shortness of breath Acute heart failure with reduced ejection fraction Ischemic cardiomyopathy SVT, s/p conversion with adenosine Coronary artery disease with previous three-vessel CABG History of CVA History of left CEA Hypertension Hyperlipidemia Diabetes Peripheral vascular disease with previous intervention of lower extremities PLAN: Continue current cardiac medications Increase losartan to 50 mg daily Add Aldactone 25 mg daily Discontinue fenofibrate. Begin Lipitor 40 mg daily Continue IV lasix for an additional 24 hours Further recommendations pending patient course Nurse practitioner note has been reviewed by physician. Signing provider agrees with the documented findings, assessment, and plan of care. Objective - Vital Signs Vital signs: Vital Signs Temp 97.7 F 08/07/22 08:00 Pulse 76 08/07/22 08:00 Resp 16 08/07/22 08:00 BP 132/84 08/07/22 08:00 Pulse Ox 96 08/07/22 08:21 FiO2 21 08/07/22 08:21 Intake & Output 08/06/22 08/07/22 08/07/22 18:59 06:59 18:59 Intake Total 360 0 Output Total 300 600 Balance 60 -600 0 Weight 83.915 kg Intake: Oral 360 0 Output: Urine 300 600 Other: Voiding Method Toilet Toilet - Labs CBC & Chem 7: 08/06/22 05:32 08/07/22 07:32 Labs: Abnormal Lab Results - Last 24 Hours (Table) 08/06/22 08/06/22 08/06/22 Range/Units 05:32 05:32 11:45 BUN (9-20) mg/dL Creatinine (0.66-1.25) mg/dL Glucose (74-99) mg/dL POC Glucose (mg/dL) 197 H (70-110) mg/dL Hemoglobin A1c 7.7 H (0.0-6.0) % Calcium (8.4-10.2) mg/dL LDL Cholesterol, Calc 134.8 H (0.0-131.0) mg/dL HDL Cholesterol 39.40 L (40.00-60.00) mg/dL 08/06/22 08/07/22 08/07/22 Range/Units 16:30 00:06 06:10 BUN (9-20) mg/dL Creatinine (0.66-1.25) mg/dL Glucose (74-99) mg/dL POC Glucose (mg/dL) 172 H 125 H 115 H (70-110) mg/dL Hemoglobin A1c (0.0-6.0) % Calcium (8.4-10.2) mg/dL LDL Cholesterol, Calc (0.0-131.0) mg/dL HDL Cholesterol (40.00-60.00) mg/dL 08/07/22 Range/Units 07:32 BUN 31 H (9-20) mg/dL Creatinine 1.32 H (0.66-1.25) mg/dL Glucose 113 H (74-99) mg/dL POC Glucose (mg/dL) (70-110) mg/dL Hemoglobin A1c (0.0-6.0) % Calcium 8.3 L (8.4-10.2) mg/dL LDL Cholesterol, Calc (0.0-131.0) mg/dL HDL Cholesterol (40.00-60.00) mg/dL
[2022-08-07 11:30] LABS: Glucose,Whole Blood 205 mg/dL (70-110)
[2022-08-07] MEDS: DAPAGLIFLOZIN PROPANEDIOL 10 MG TABLET PO SCH (12:10)
--- NOTE | 2022-08-07 12:47 | P.PN ---
Subjective Progress Note Date: 08/07/22 Principal diagnosis: sob Patient is feeling better today, his breathing is back at baseline. No palpitations or chest pain. No fevers. Objective - Vital Signs Vital signs: Vital Signs Temp 97.7 F 08/07/22 08:00 Pulse 75 08/07/22 11:44 Resp 16 08/07/22 11:44 BP 105/65 08/07/22 11:44 Pulse Ox 95 08/07/22 11:44 FiO2 21 08/07/22 08:21 Intake & Output 08/06/22 08/07/22 08/07/22 18:59 06:59 18:59 Intake Total 360 0 Output Total 300 600 Balance 60 -600 0 Weight 83.915 kg Intake: Oral 360 0 Output: Urine 300 600 Other: Voiding Method Toilet Toilet - Exam Constitutional: No acute distress, conversant, pleasant Eyes:Anicteric sclerae, moist conjunctiva, no lid-lag, PERRLA, ENMT: Oropharynx clear, no erythema, exudates Neck: Supple, FROM, no masses, or JVD, No carotid bruits, No thyromegaly Lungs: Clear to auscultation, Clear to percussion, Normal respiratory effort, no accessory muscle use Cardiovascular: Heart regular in rate and rhythm, No murmurs, gallops, or rubs, No peripheral edema Abdominal: Soft, Nontender, no guarding, rebound or rigidity, Normoactive bowel sounds, No hepatomegaly, No splenomegaly, No palpable mass Skin: Normal temperature, tone, texture, turgor, no induration, No subcutaneous nodules, No rash, lesions, No ulcers Extremities: No digital cyanosis, No clubbing, Pedal pulses intact and symmetrical, Radial pulses intact and symmetrical, No calf tenderness Psychiatric: Alert and oriented to person, place and time, appropriate affect, intact judgement Neuro: Muscles Strength 5/5 in all 4 extremities, Sensation to light touch grossly present throughout, Cranial nerves II-XII grossly intact, no focal sensory deficits - Labs CBC & Chem 7: 08/06/22 05:32 08/07/22 07:32 Labs: Abnormal Lab Results - Last 24 Hours (Table) 08/06/22 08/06/22 08/06/22 Range/Units 05:32 05:32 16:30 BUN (9-20) mg/dL Creatinine (0.66-1.25) mg/dL Glucose (74-99) mg/dL POC Glucose (mg/dL) 172 H (70-110) mg/dL Hemoglobin A1c 7.7 H (0.0-6.0) % Calcium (8.4-10.2) mg/dL LDL Cholesterol, Calc 134.8 H (0.0-131.0) mg/dL HDL Cholesterol 39.40 L (40.00-60.00) mg/dL 08/07/22 08/07/22 08/07/22 Range/Units 00:06 06:10 07:32 BUN 31 H (9-20) mg/dL Creatinine 1.32 H (0.66-1.25) mg/dL Glucose 113 H (74-99) mg/dL POC Glucose (mg/dL) 125 H 115 H (70-110) mg/dL Hemoglobin A1c (0.0-6.0) % Calcium 8.3 L (8.4-10.2) mg/dL LDL Cholesterol, Calc (0.0-131.0) mg/dL HDL Cholesterol (40.00-60.00) mg/dL 08/07/22 Range/Units 11:29 BUN (9-20) mg/dL Creatinine (0.66-1.25) mg/dL Glucose (74-99) mg/dL POC Glucose (mg/dL) 205 H (70-110) mg/dL Hemoglobin A1c (0.0-6.0) % Calcium (8.4-10.2) mg/dL LDL Cholesterol, Calc (0.0-131.0) mg/dL HDL Cholesterol (40.00-60.00) mg/dL Assessment and Plan Plan: Acute chest pain Dyspnea on exertion SVT, now status post conversion Pulmonary edema new onset CHF exacerbation -telemetry - Trop negative so far - Echo showed EF 20-25%, cardio recommending heart cath at some point - lasix--switched to p.o, increased metoprolol - ASA - patient unable to tolerate statin Diabetes, insulin-dependent - holding metformin and glipizide - continue home lantus, and SGLT2i - on SSI - A1c 7.7 CAD status post CABG History of CVA, no gross deficits History of CEA Peripheral vascular disease Dyslipidemia Hypertension - medications reviewed and reconciled Surrogate decision-maker: Daughters CODE STATUS:full code DVT prophylaxis: heparin sq
[2022-08-07 16:26] LABS: Glucose,Whole Blood 207 mg/dL (70-110)
[2022-08-07 19:40] LABS: Glucose,Whole Blood 121 mg/dL (70-110)
[2022-08-08] MEDS: HEPARIN SODIUM,PORCINE/PF 5,000 UNIT/0.5 ML SYRINGE SQ SCH ×2 (00:39→09:13)
[2022-08-08 05:45] LABS: Glucose,Whole Blood 131 mg/dL (70-110)
[2022-08-08] MEDS: INSULIN ASPART (NovoLOG) 100 UNIT/ML VIAL SQ SCH ×2 (06:51→12:47)
[2022-08-08] MEDS: SODIUM CHLORIDE 0.9% 1,000 ML IV SCH (06:55)
[2022-08-08 08:22] LABS: Calcium 8.6 mg/dL (8.4-10.2); Potassium 4.2 mmol/L (3.5-5.1)
[2022-08-08] MEDS ORDERED: FUROSEMIDE 20 MG TAB PO SCH (09:00)
[2022-08-08] MEDS: ASPIRIN 81 MG PO SCH (09:13)
[2022-08-08] MEDS: ATORVASTATIN 40 MG TAB PO SCH ×2 (09:13→09:15)
[2022-08-08] MEDS: LOSARTAN 50 MG TAB PO SCH (09:15)
[2022-08-08] MEDS: METOPROLOL TARTRATE 50 MG TAB PO SCH (09:16)
[2022-08-08] MEDS: SPIRONOLACTONE 25 MG TAB PO SCH (09:16)
--- NOTE | 2022-08-08 10:28 | P.PN ---
Subjective Progress Note Date: 08/08/22 HISTORY OF PRESENT ILLNESS: This is a 77-year-old male with a past medical history significant for coronary artery disease with previous three-vessel CABG in 2012, CVA, left CEA, hyp ertension, hyperlipidemia, diabetes, and peripheral vascular disease with previous intervention to his lower extremities. Patient follows with a Dr. Romero. We have been asked to see the patient in consultation for SVT. Patient examined at the bedside. Patient states over the last week he has felt very tired and weak. He reports not having any energy. He states he has had some intermittent chest pains as well. He reports feeling SOB with exertion such as walking up a flight of stairs. He does not recall feeling his heart racing. His family member at the bedside reports that yesterday he broke out into a cold sweat and had the chills. The patient came to the ER for further evaluation. He was found to be in SVT. He received adenosine x 2 with conversion to sinus mechanism. He reports having a stress test and echo recently at Dr. Romero office which he reports was normal. * EKG reveals SVT. Repeat EKG reveals sinus mechanism. * Chest xray small bilateral pleural effusions and mild congestion consistent with congestive heart failure which is new compared to old exam * Chest CT: Negative for PE * Laboratory data: WBC 5.7. Hemoglobin 13.5. Platelet count 201. Sodium 141. Potassium 4.3. BUN 27. Creatinine 1.1. TSH 2.610. Troponin negative 3. ProBNP 4520 * Current home cardiac medications include metoprolol tartrate 25 mg twice a day, losartan 25 mg daily, fenofibrate 160 mg daily, and Farxiga 10mg daily 08/07/2022 Patient examined this morning at the bedside. Patient denies chest pain or pressure. Denies SOB. No further episodes of SVT. TSH normal at 2.610. Patient remains on IV lasix. 24 hour fluid balance is -540cc. Creatinine 1.32. Reports from Dr. Romero office obtained. Patient underwent stress test in July 2021 which was negative for ischemia. However, his EF was noted to be 28% at that time. Echocardiogram completed reveals ejection fraction 20-25% with mild MR and mild TR. 08/08/2022 Patient examined this morning to bedside. Patient denies chest pain or pressure. He denies shortness of breath. Vital signs are stable. He was swit ched to oral Lasix yesterday secondary to increased creatinine. Creatinine today 1.39. PHYSICAL EXAM: VITAL SIGNS: Reviewed. GENERAL: Well-developed in no acute distress. HEENT: Head is normocephalic. Pupils are equal, round. Sclerae anicteric. Mucous membranes of the mouth are moist. Neck supple. No JVD or thyromegaly LUNGS: Respirations even and unlabored. Lungs diminished at the bases HEART: Regular rate and rhythm. S1 and S2 heard. ABDOMEN: Soft. Nondistended. Nontender. EXTREMITIES: Normal range of motion. No clubbing or cyanosis. Peripheral pulses intact. No lower extremity edema NEUROLOGIC: Awake and alert. Oriented x 3. ASSESSMENT: Shortness of breath Acute heart failure with reduced ejection fraction Ischemic cardiomyopathy SVT, s/p conversion with adenosine Coronary artery disease with previous three-vessel CABG History of CVA History of left CEA Hypertension Hyperlipidemia Diabetes Peripheral vascular disease with previous intervention of lower extremities PLAN: Continue current cardiac medications Hold Lasix and Aldactone today secondary to increased creatinine. May resume tomorrow Patient is stable for discharge home today from a cardiac standpoint He has a follow-up appointment scheduled with his primary manager study on Friday Further recommendations pending patient course Nurse practitioner note has been reviewed by physician. Signing provider agrees with the documented findings, assessment, and plan of care. Objective - Vital Signs Vital signs: Vital Signs Temp 97.7 F 08/08/22 09:00 Pulse 62 08/08/22 09:00 Resp 16 08/08/22 09:00 BP 133/81 08/08/22 09:00 Pulse Ox 96 08/08/22 09:00 FiO2 21 08/07/22 08:21 Intake & Output 08/07/22 08/08/22 08/08/22 18:59 06:59 18:59 Intake Total 180 236 Balance 180 236 Intake: Oral 180 236 Other: Voiding Method Toilet Toilet - Labs CBC & Chem 7: 08/06/22 05:32 08/08/22 06:58 Labs: Abnormal Lab Results - Last 24 Hours (Table) 08/07/22 08/07/22 08/07/22 Range/Units 11:29 16:25 19:39 BUN (9-20) mg/dL Creatinine (0.66-1.25) mg/dL Glucose (74-99) mg/dL POC Glucose (mg/dL) 205 H 207 H 121 H (70-110) mg/dL 08/08/22 08/08/22 Range/Units 05:43 06:58 BUN 32 H (9-20) mg/dL Creatinine 1.39 H (0.66-1.25) mg/dL Glucose 147 H (74-99) mg/dL POC Glucose (mg/dL) 131 H (70-110) mg/dL
[2022-08-08 11:46] LABS: Glucose,Whole Blood 181 mg/dL (70-110)
--- NOTE | 2022-08-08 12:23 | P.DS ---
Providers Date of admission: 08/05/22 22:36 Expected date of discharge: 08/08/22 Attending physician: Leslie Simental MD Consults: 08/05/22 22:36 Consult Physician Routine Consulting Provider: Marko Jesus Consult Reason/Comments: chf Do you want consulting provider notified?: Yes Primary care physician: [facility] Course: a 77-year-old male with history of CAD status post CABG, CVA, CEA, insulin- dependent diabetes, hypertension, dyslipidemia, peripheral vascular disease presented with shortness of breath and chest pain with exertion. Patient claims that over the last 1 week he has been feeling a little under the weather. 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 Chest pain was described as tightness, substernal, 6/10, nonradiating. He denies any significant palpitations, lightheadedness, fevers, chills, abdominal pain, nausea, vomiting, bowel or bladder issues. He was seen by his inclusion teacher 2 years ago, when he had his stress test and echo which were normal. He denies any smoking, alcohol use, illicit drug use. In the ED, patient was in SVT, required adenosine for conversion. Chest x-ray concerning for congestive heart failure. CTA did not show any PE. Initial troponin were negative. TSH normal. Rest of the lab work was otherwise unremarkable. He was admitted for acute CHF exacerbation. He was diuresed with IV lasix. Echo showed EF 20-25%, cardio recommending heart cath at some point with his own inclusion teacher. Cardio later switched lasix to p.o from IV. Increased metoprolol and losartan doses. Aldactone was added. Lipitor added to regimen and fenofibrate was d/rosio. He does have hx of statin intolerance, upon discharge he was told to start lipitor only every other day then daily if tolerated.. Today patient is doing well. His breating is back to baseline. He was cleared by cardio for discharge. He was discharged home in a stable condition. Patient was seen face to face and examined on the day of discharge 08/08 Time for discharge 36 min Patient Condition at Discharge: Fair Plan - Discharge Summary Discharge Rx Participant: No New Discharge Prescriptions: New Aspirin 81 mg PO DAILY tab Losartan [Cozaar] 50 mg PO DAILY 30 Days #30 tab Furosemide [Lasix] 20 mg PO DAILY 30 Days #30 tab Spironolactone [Aldactone] 25 mg PO DAILY 30 Days #30 tab Atorvastatin [Lipitor] 40 mg PO DAILY 30 Days #30 tab Metoprolol Tartrate [Lopressor] 50 mg PO BID 30 Days #60 tab Continue metFORMIN HCL [Glucophage] 1,000 mg PO AC-BID Insulin Glargine [Lantus Vial] 20 unit SQ HS PRN PRN Reason: high bs glipiZIDE [Glucotrol] 10 mg PO AC-BID Dapagliflozin Propanediol [Farxiga] 10 mg PO DAILY@1200 Dextrose Chew [Glucose Chew Tab] 4 gm PO ONCE PRN PRN Reason: Hypoglycemia INSULIN ASPART (NovoLOG) [NovoLOG (formulary)] See Protocol SQ AC-TID Discontinued Metoprolol Tartrate [Lopressor] 25 mg PO BID Losartan [Cozaar] 25 mg PO DAILY Fenofibrate 160 mg PO DAILY Discharge Medication List Insulin Glargine [Lantus Vial] 20 unit SQ HS PRN 11/24/14 [History] metFORMIN HCL [Glucophage] 1,000 mg PO AC-BID 11/24/14 [History] Dapagliflozin Propanediol [Farxiga] 10 mg PO DAILY@1200 08/05/22 [History] Dextrose Chew [Glucose Chew Tab] 4 gm PO ONCE PRN 08/05/22 [History] INSULIN ASPART (NovoLOG) [NovoLOG (formulary)] See Protocol SQ AC-TID 08/05/22 [History] glipiZIDE [Glucotrol] 10 mg PO AC-BID 08/05/22 [History] Aspirin 81 mg PO DAILY tab 08/08/22 [Rx] Atorvastatin [Lipitor] 40 mg PO DAILY 30 Days #30 tab 08/08/22 [Rx] Furosemide [Lasix] 20 mg PO DAILY 30 Days #30 tab 08/08/22 [Rx] Losartan [Cozaar] 50 mg PO DAILY 30 Days #30 tab 08/08/22 [Rx] Metoprolol Tartrate [Lopressor] 50 mg PO BID 30 Days #60 tab 08/08/22 [Rx] Spironolactone [Aldactone] 25 mg PO DAILY 30 Days #30 tab 08/08/22 [Rx] Follow up Appointment(s)/Referral(s): Maximo Renteria DO [Primary Care Provider] - 08/13/22 2:20 pm (Friday) Activity/Diet/Wound Care/Special Instructions: Please call your inclusion teacher and schedule a follow up appointment
[2022-08-08] MEDS: DAPAGLIFLOZIN PROPANEDIOL 10 MG TABLET PO SCH (12:47)
[2022-08-08 15:03] VITALS: BP 128/77; PULSE 94; RESP 18; TEMP 97.8
== END 2022-08-08 12:55 | disposition home or self-care (01) | DRG 291 ==
LOC: EC 19:02 → 3SCARD 22:36
PROVIDERS: ADMIT Internal Medicine; ATTEND Internal Medicine
DX: I11.0 Hypertensive heart disease with heart failure (principal); I50.21 Acute systolic (congestive) heart failure; I47.1 Supraventricular tachycardia; I25.10 Atherosclerotic heart disease of native coronary artery without angina pectoris; E11.51 Type 2 diabetes mellitus with diabetic peripheral angiopathy without gangrene; E78.5 Hyperlipidemia, unspecified; G47.30 Sleep apnea, unspecified; I25.5 Ischemic cardiomyopathy; K21.9 Gastro-esophageal reflux disease without esophagitis; Z96.698 Presence of other orthopedic joint implants; I49.3 Ventricular premature depolarization; Z20.822 Contact with and (suspected) exposure to COVID-19; I25.2 Old myocardial infarction; Z95.1 Presence of aortocoronary bypass graft; Z86.73 Personal history of transient ischemic attack (TIA), and cerebral infarction without residual deficits; Z79.899 Other long term (current) drug therapy; Z79.84 Long term (current) use of oral hypoglycemic drugs; Z79.4 Long term (current) use of insulin; Z98.62 Peripheral vascular angioplasty status; Z88.8 Allergy status to other drugs, medicaments and biological substances
CPT/HCPCS: 36415; 71046; 71275; 80048; 80053; 80061; 83036; 83735; 83880; 84100; 84443; 84484; 85025; 85379; 85610; 85730; 87635; 93005; 93306; 96374; 99285

== ENCOUNTER → 2023-04-11 | Outpatient (CLI) | payer MEDICARE, BC ==
--- NOTE | 2023-04-11 10:56 | XR ---
"EXAMINATION TYPE: XR chest 2V DATE OF EXAM: 04/11/2023 COMPARISON: 08/05/2022 TECHNIQUE: PA and lateral views submitted. HISTORY: Cough FINDINGS: The heart is prominent and there is small bilateral pleural effusions greater right. Postoperative ch anges are seen. Linear density along the lateral margin of left lung likely scar atelectasis. Mild ce ntral venous congestion. No pneumothorax. Atherosclerotic change aorta. Hypertrophic degenerative hugo nges of the spine. IMPRESSION: 1. Bilateral consolidation small effusion greater on the right related to mild venous congestion. A [place] level critical message alert has been initiated for GUTIERREZ Barrera via the [employer] | Critical Results System on 04/11/2023 10:54 AM. This message alert has been sent to GUTIERREZ Barrera via the preferences provided by the clinician for the receipt of Radiology Critical Fin dings. Message ID [id number]."
== END | disposition home or self-care (01) ==
LOC: RADXRYALE 10:31
PROVIDERS: ATTEND Physician Assistant Medical
DX: J90 Pleural effusion, not elsewhere classified (principal); J98.4 Other disorders of lung; R05.9 Cough, unspecified; R06.02 Shortness of breath
CPT/HCPCS: 71046

== ENCOUNTER → 2024-01-23 | Outpatient (CLI) | payer MEDICARE, BC ==
--- NOTE | 2024-01-24 11:17 | US ---
EXAMINATION TYPE: US kidneys/renal and bladder DATE OF EXAM: 01/23/2024 COMPARISON: NONE CLINICAL INDICATION: Male, 78 years old with history of N18.31 I12.9 E11.22 DM; Slight flank pain EXAM MEASUREMENTS: Right Kidney: 9.9 x 5.9 x 4.9 cm Left Kidney: 10.7 x 5.3 x 4.5 cm Slightly limited due to overlying bowel gas Right Kidney: No hydronephrosis or masses seen as best visualized today Left Kidney: No hydronephrosis or masses seen as best visualized today Bladder: Bladder not fully distended for thorough evaluation. Bilateral Jets seen: No IMPRESSION: 1. No renal mass, calcification, hydronephrosis or perinephric fluid collection. 2. Limited evaluation of the urinary bladder due to nondistention with urine.
== END | disposition home or self-care (01) ==
LOC: RADUSWWP 15:41
PROVIDERS: ATTEND Family Medicine
DX: N18.31 Chronic kidney disease, stage 3a (principal); I12.9 Hypertensive chronic kidney disease with stage 1 through stage 4 chronic kidney disease, or unspecified chronic kidney disease; E11.22 Type 2 diabetes mellitus with diabetic chronic kidney disease
CPT/HCPCS: 76770

== ENCOUNTER 2024-02-12 10:55 | Observation (INO) | payer MEDICARE, BC ==
[2024-02-12 11:42] LABS: Basophils % (A) 0 %; Eosinophils # (A) 0.4 k/uL (0-0.7); Eosinophils % (A) 5 %; HCT 38.9 % (39.0-53.0); HGB 12.5 gm/dL (13.0-17.5); Lymphocytes # (A) 1.2 k/uL (1.0-4.8); Lymphocytes % (A) 17 %; MCH 29.4 pg (25.0-35.0); MCHC 32.2 g/dL (31.0-37.0); MCV 91.4 fL (80.0-100.0); Monocytes # (A) 0.4 k/uL (0-1.0); Monocytes % (A) 6 %; Neutrophils # (A) 4.9 k/uL (1.3-7.7); Neutrophils % (A) 69 %; Platelet Count 200 k/uL (150-450); RBC 4.26 m/uL (4.30-5.90); RDW 14.8 % (11.5-15.5); WBC 7.1 k/uL (3.8-10.6)
--- NOTE | 2024-02-12 11:51 | XR ---
EXAMINATION TYPE: XR chest 2V DATE OF EXAM: 02/12/2024 COMPARISON: 04/11/2023 TECHNIQUE: PA and lateral views submitted. HISTORY: Chest pain FINDINGS: Underlying COPD with bilateral consolidation and small effusion greater on the right. Post median chance rnotomy changes with cardiac device. Atherosclerotic change aorta. Degenerative changes of the spine. No pneumothorax. Osseous structures demonstrate hypertrophic and degenerative changes of the spine. IMPRESSION: 1. Favorable bilateral consolidation and small pleural effusion greater on the right..
[2024-02-12 11:54] LABS: Partial Thromboplastin Time 22.3 sec (22.0-30.0); Prothrombin Time 11.3 sec (10.0-12.5)
[2024-02-12 11:59] LABS: ALT 15 U/L (4-49); AST 25 U/L (17-59); African American GFR (CKD) 51 (>60 ml/min/1.73 sqM); Albumin 3.8 g/dL (3.5-5.0); Alkaline Phosphatase 56 U/L (38-126); Anion Gap 6 mmol/L; Blood Urea Nitrogen 37 mg/dL (9-20); Calcium 8.9 mg/dL (8.4-10.2); Carbon Dioxide 25 mmol/L (22-30); Chloride 110 mmol/L (98-107); Glucose 155 mg/dL (74-99); Magnesium 1.9 mg/dL (1.6-2.3); Non-African American GFR(CKD) 44 (>60 ml/min/1.73 sqM); Potassium 4.5 mmol/L (3.5-5.1); Sodium 141 mmol/L (137-145); Total Bilirubin 0.5 mg/dL (0.2-1.3); Total Protein 6.9 g/dL (6.3-8.2)
[2024-02-12 12:07] LABS: NT-Pro-B-Type Natriuretic Pept 2180 pg/mL
--- NOTE | 2024-02-12 12:57 | ED ---
Chest Pain HPI - General Chief Complaint: Chest Pain Stated Complaint: chest pain Time Seen by Provider: 02/12/24 11:14 Source: patient, family, EMS, RN notes reviewed Mode of arrival: EMS Limitations: no limitations - History of Present Illness Initial Comments: 78-year-old male presents emergency department chief complaint of chest pain. Patient was sent in by EMS from PCPs office. Patient states he had a pacemaker placed 3 weeks ago. Patient states that he has been having discomfort central chest right arm shortness of breath with exertion patient was given nitro alleviated all of his symptoms. Patient did receive aspirin. Denies any headache no fevers no other complaints. - Related Data Home Medications Medication Instructions Recorded Confirmed Insulin Glargine [Lantus Vial] 20 unit SQ HS PRN 11/24/14 08/05/22 metFORMIN HCL [Glucophage] 1,000 mg PO AC-BID 11/24/14 08/05/22 Dapagliflozin Propanediol [Farxiga] 10 mg PO DAILY@1200 08/05/22 08/05/22 Dextrose Chew [Glucose Chew Tab] 4 gm PO ONCE PRN 08/05/22 08/05/22 INSULIN ASPART (NovoLOG) [NovoLOG See Protocol SQ AC-TID 08/05/22 08/05/22 (formulary)] glipiZIDE [Glucotrol] 10 mg PO AC-BID 08/05/22 08/05/22 Previous Rx's Medication Instructions Recorded Aspirin 81 mg PO DAILY tab 08/08/22 Atorvastatin [Lipitor] 40 mg PO DAILY 30 Days #30 tab 08/08/22 Furosemide [Lasix] 20 mg PO DAILY 30 Days #30 tab 08/08/22 Losartan [Cozaar] 50 mg PO DAILY 30 Days #30 tab 08/08/22 Metoprolol Tartrate [Lopressor] 50 mg PO BID 30 Days #60 tab 08/08/22 Spironolactone [Aldactone] 25 mg PO DAILY 30 Days #30 tab 08/08/22 Allergies Allergy/AdvReac Type Severity Reaction Status Date / Time No Known Allergies Allergy Verified 02/12/24 11:08 Review of Systems ROS Statement: Those systems with pertinent positive or pertinent negative responses have been documented in the HPI. ROS Other: All systems not noted in ROS Statement are negative. EKG Findings - EKG Comments: EKG Findings:: EKG performed at 11: 07 atrial paced with a rate of 67 rate of 181 QRS 112 QT/QTc 399/414 - EKG Results: EKG: interpreted by JUNIOR Past Medical History Past Medical History: CVA/TIA, Diabetes Mellitus, GERD/Reflux, Hyperlipidemia, Hypertension, Myocardial Infarction ([place]), Sleep Apnea/CPAP/BIPAP Additional Past Medical History / Comment(s): CVA 2012-NO RESIDUAL, PVD Last Myocardial Infarction Date:: 2012 History of Any Multi-Drug Resistant Organisms: None Reported Past Surgical History: Coronary Bypass/CABG, Heart Catheterization, Joint Replacement, Orthopedic Surgery Additional Past Surgical History / Comment(s): LT CAROTID ENDARTERECTOMY,CABG-3 VESSEL,GEORGE LOWER EXT VASCULAR PROCEDURES, SLEEP APNEA SURGERY,NASAL SURGERY,LT GREAT TOE JT REPLACEMENT,DENTAL IMPLANTS,ORIF LT ANKLE-HARDWARE LATER REMOVED, COLONOSCOPY, BILAT CATARACTS REMOVED-LENS IMPLANT Past Anesthesia/Blood Transfusion Reactions: No Reported Reaction Past Psychological History: No Psychological Hx Reported Smoking Status: Never smoker Past Alcohol Use History: Rare Past Drug Use History: None Reported - Past Family History Brother(s) Family Medical History: Cancer Additional Family Medical History / Comment(s): BRAIN General Exam Limitations: no limitations General appearance: alert, in no apparent distress Head exam: Present: atraumatic, normocephalic, normal inspection Eye exam: Present: normal appearance, PERRL, EOMI. Absent: scleral icterus, conjunctival injection, periorbital swelling ENT exam: Present: normal exam, normal oropharynx, mucous membranes moist Neck exam: Present: normal inspection, full ROM. Absent: tenderness, meningismus, lymphadenopathy Respiratory exam: Present: normal lung sounds bilaterally, other (Left anterior chest incision healing well no erythema no swelling). Absent: respiratory distress, wheezes, rales, rhonchi, stridor Cardiovascular Exam: Present: regular rate, normal rhythm, normal heart sounds. Absent: systolic murmur, diastolic murmur, rubs, gallop, clicks GI/Abdominal exam: Present: soft, normal bowel sounds. Absent: distended, tenderness, guarding, rebound, rigid Course Vital Signs 02/12/24 10:56 Temperature 97.9 F Pulse Rate 68 Respiratory 20 Rate Blood Pressure 136/65 O2 Sat by Pulse 96 Oximetry Chest Pain MDM - MDM Was pt. sent in by a medical professional or institution (Dr., PA, POLYMERIZATION SUPERVISOR, urgent care, hospital, or longterm...) When possible be specific @ -[PCP Did you speak to anyone other than the patient for history (EMS, parent, family, police, friend...)? What history was obtained from this source @ -No Did you review nursing and triage notes (agree or disagree)? Why? @ -I reviewed and agree with nursing and triage notes Were old charts reviewed (outside hosp., previous admission, EMS record, old EKG, old radiological studies, urgent care reports/EKG's, longterm records)? Report findings @ -No old charts were reviewed Differential Diagnosis (chest pain, altered mental status, abdominal pain women, abdominal pain men, vaginal bleeding, weakness, fever, dyspnea, syncope, headache, dizziness, GI bleed, back pain, seizure, CVA, palpatations, mental health, musculoskeletal)? @ -Differential Chest Pain: Stable Angina, Unstable Angina, STEMI, NSTEMI Aortic Dissection, Pneumothorax, Musculoskeletal, Esophageal Spasm GERD, Cholecystitis, Pancreatitis, Zoster, this is not meant to be an all-inclusive list. EKG interpreted by me (3pts min.). @ -As above X-rays interpreted by me (1pt min.). @ -Chest x-ray shows no acute cardiopulmonary process CT interpreted by me (1pt min.). @ -None done U/S interpreted by me (1pt. min.). @ -None done What testing was considered but not performed or refused? (CT, X-rays, U/S, labs)? Why? @ -None What meds were considered but not given or refused? Why? @ -None Did you discuss the management of the patient with other professionals (professionals i.e. , PA, POLYMERIZATION SUPERVISOR, lab, RT, psych nurse, social media coordinator, cement kiln operator, teacher, financial aid officer, patient case coordinator)? Give summary @ -Dr. Hale for admission for cardiac rule out Was smoking cessation discussed for >3mins.? @ -No Was critical care preformed (if so, how long)? @ -No Were there social determinants of health that impacted care today? How? (Homelessness, low income, unemployed, alcoholism, drug addiction, transportation, low edu. Level, literacy, decrease access to med. care, fpc, rehab)? @ -No Was there de-escalation of care discussed even if they declined (Discuss DNR or withdrawal of care, Hospice)? DNR status @ -No What co-morbidities impacted this encounter? (DM, HTN, Smoking, COPD, CAD, Cancer, CVA, ARF, Chemo, Hep., AIDS, mental health diagnosis, sleep apnea, morbid obesity)? @ -[CAD hypertension hyperlipidemia Was patient admitted / discharged? Hospital course, mention meds given and route, prescriptions, significant lab abnormalities, going to OR and other pertinent info. @ -Admitted patient has significant cardiac history had recent pacemaker placed echocardiogram will be obtained, repeat troponin cardiology evaluation Undiagnosed new problem with uncertain prognosis? @ -No Drug Therapy requiring intensive monitoring for toxicity (Heparin, Nitro, Insulin, Cardizem)? @ -No Were any procedures done? @ -No Diagnosis/symptom? @ -Chest pain Acute, or Chronic, or Acute on Chronic? @ -Acute Uncomplicated (without systemic symptoms) or Complicated (systemic symptoms)? @ -Complicated Side effects of treatment? @ -No Exacerbation, Progression, or Severe Exacerbation? @ -No Poses a threat to life or bodily function? How? (Chest pain, [place], [place], pneumonia, PE, COPD, DKA, ARF, appy, cholecystitis, CVA, Diverticulitis, Homicidal, Suicidal, threat to staff... and all critical care pts) @ -Yes possible ACS could cause cardiac arrest Disposition Clinical Impression: Chest pain Disposition: ADMITTED IP TO THIS HOSP Condition: Fair Time of Disposition: 14:05
[2024-02-12] MEDS: ASPIRIN 81 MG PO STA (14:15)
[2024-02-12] MEDS: NITROGLYCERIN OINT 1 INCH/GM PACKET TOPICAL SCH (14:16)
--- NOTE | 2024-02-12 15:32 | P.HPIM ---
History of Present Illness H&P Date: 02/12/24 History of Presenting Illness: Patient is a very pleasant 78-year-old male with a past medical history of CAD status post stenting x 5 and CABG x 4, ischemic cardiomyopathy,hypertension, hyperlipidemia, chronic systolic heart failure, chronic kidney disease stage IIIb and insulin-dependent diabetes mellitus. Patient reports he follows with Dr. Romero out of [facility] for his safety person and recently underwent AICD placement 3 weeks ago secondary to his ischemic cardiomyopathy with reported EF of 30 to 35%. Patient reports since procedure he has been feeling fine, however he awoke this morning feeling nauseous and pain/tightness across his entire chest radiating into his right shoulder. Patient reports that shortly followed by exertional shortness of breath. He reports taking sublingual nitro without relief and states that he was close to his PCPs office so he went there for evaluation. Patient reports he was taken straight back and evaluated by his PCP and they called an ambulance for transfer to the emergency department. Patient reports pain to midsternal chest and radiates across the entire chest, he describes this as a tightness and reports it has been waxing and waning but radiates into right shoulder which seems to be more of a constant pain. He denies shortness of breath at rest but does report shortness of breath with any exertion. He reports mild dizziness/lightheadedness when pain is at its worst. Patient denies having any recent infections, headache, fevers, chills, palpitations, cough or congestion, nausea or vomiting, abdominal pain, or experiencing any numbness/tingling/weakness/swelling in his extremities. He underwent evaluation in the emergency department. Vital signs upon arrival show blood pressure 136/65, heart rate 68, respiratory rate 20, temp 97.9 F, and SpO2 of 96% on room air. EKG completed showing an atrial paced rhythm at 67 bpm with occasional PVC. Chest x-ray showing bilateral consolidation and small pleural effusion greater on the right. Labs completed and reviewed. CBC showing stable normocytic anemia with hemoglobin of 12.5. Coagulation profile normal findings. BMP showing elevated chloride of 110 and consistent with stage IIIb CKD with BUN of 37, creatinine 1.51, GFR 44. Magnesium 1.9. Liver profile unremarkable. Troponin less than 0.012 and proBNP 2180. Patient admitted under our services with consultation to cardiology. Review of systems: Pertinent positives and negatives as discussed in HPI, a complete review of systems was performed and all other systems are negative. Physical exam: Vital signs reviewed and stable. General: Nontoxic, no distress and appears stated age. Derm: Skin warm and dry, normal coloration for ethnicity. Head: Atraumatic, normocephalic and symmetric. Eyes: EOMs intact, no lid lag, and anicteric sclera Mouth: no lip lesions, mucus membranes moist Cardiovascular: regular rate and rhythm with normal S1S2, systolic murmur, positive posterior tibial pulses bilaterally, and cap refill < 2 seconds. Pacemaker insertion site left anterior chest appears to be healing well with no surrounding erythema or drainage noted. Lungs: Respirations even, regular, and unlabored on room air. Lungs CTA bilaterally, no rhonchi, no rales, no wheezing, and no accessory muscle usage. Abdominal: soft, nontender to palpation, no guarding, no appreciable organomegaly Ext: ROM intact. No gross muscle atrophy, no edema, no contractures Neuro: Speech clear, face symmetrical and CN II-XII grossly intact with no noted focal neuro deficits Psych: Alert and oriented to person, place, time, and situation. Appropriate and pleasant affect. Assessment and Plan of Care: Chest pain, rule out acute coronary event Status post recent AICD placement History of CAD status post stenting x 5 and CABG x 4 Ischemic cardiomyopathy Chronic systolic heart failure, per patient EF 30-35% Hypertension Hyperlipidemia Chronic kidney disease stage IIIb -Cardiology consulted, discussed in detail with Dr. Rocha. -Order placed to obtain pacemaker interrogation report -Telemetry monitoring -Trend troponins -Cardiac diet, NPO at midnight -Continue cardiac medication regimen with aspirin 81 mg daily, carvedilol 12.5 mg twice daily, Plavix 75 mg daily, Jardiance 10 mg daily, fenofibrate 160 mg daily, furosemide 20 mg daily, Ranexa 500 mg twice daily, rosuvastatin 20 mg daily, Entresto 24/26 mg tablet twice daily, and Aldactone 25 mg daily. - await echo Insulin-dependent diabetes mellitus -Patient placed on glycemic protocol with NovoLog sliding scale. Data and imaging reviewed: As stated above in HPI The patient is admitted with an anticipated less than 2 midnight stay for evaluation of chest pain CODE STATUS: Full code DVT prophylaxis: Heparin Anticipated discharge date: Clinical course to determine Anticipated discharge place: Home Patient was seen independently by Nurse Practitioner. This document was prepared using [employer] dictation software. Please allow for errors in chip bin conveyor tender while rare they do occur. Stefano Landry NP rendered care for this patient independently, reviewed the findings and plan as documented in the note above. I did not physically speak with or examine the patient on this date. Past Medical History Past Medical History: CVA/TIA, Diabetes Mellitus, GERD/Reflux, Hyperlipidemia, Hypertension, Myocardial Infarction ([place]), Sleep Apnea/CPAP/BIPAP Additional Past Medical History / Comment(s): CVA 2012-NO RESIDUAL, PVD Last Myocardial Infarction Date:: 2012 History of Any Multi-Drug Resistant Organisms: None Reported Past Surgical History: Coronary Bypass/CABG, Heart Catheterization, Joint Replacement, Orthopedic Surgery Additional Past Surgical History / Comment(s): LT CAROTID ENDARTERECTOMY,CABG-3 VESSEL,GEORGE LOWER EXT VASCULAR PROCEDURES, SLEEP APNEA SURGERY,NASAL SURGERY,LT GREAT TOE JT REPLACEMENT,DENTAL IMPLANTS,ORIF LT ANKLE-HARDWARE LATER REMOVED, COLONOSCOPY, BILAT CATARACTS REMOVED-LENS IMPLANT Past Anesthesia/Blood Transfusion Reactions: No Reported Reaction Past Psychological History: No Psychological Hx Reported Smoking Status: Never smoker Past Alcohol Use History: Rare Past Drug Use History: None Reported - Past Family History Brother(s) Family Medical History: Cancer Additional Family Medical History / Comment(s): BRAIN Medications and Allergies Home Medications Medication Instructions Recorded Confirmed Type Insulin Glargine [Lantus Vial] 10 unit SQ HS PRN 11/24/14 02/12/24 History metFORMIN HCL [Glucophage] 1,000 mg PO AC-BID 11/24/14 02/12/24 History INSULIN ASPART (NovoLOG) [NovoLOG See Protocol SQ AC-TID 08/05/22 02/12/24 History (formulary)] glipiZIDE [Glucotrol] 10 mg PO AC-BID 08/05/22 02/12/24 History Aspirin 81 mg PO DAILY tab 08/08/22 02/12/24 Rx Furosemide [Lasix] 20 mg PO DAILY 30 Days #30 tab 08/08/22 02/12/24 Rx Spironolactone [Aldactone] 25 mg PO DAILY 30 Days #30 tab 08/08/22 02/12/24 Rx Clopidogrel [Plavix] 75 mg PO DAILY 02/12/24 02/12/24 History Dapagliflozin Propanediol [Farxiga] 10 mg PO DAILY 02/12/24 02/12/24 History Fenofibrate [Lofibra] 160 mg PO DAILY 02/12/24 02/12/24 History INSULIN ASPART (NovoLOG) [NovoLOG 3 - 5 unit SQ AC-TID 02/12/24 02/12/24 History (formulary)] Nitroglycerin Sl Tabs [Nitrostat] 0.4 mg SL Q5M PRN 02/12/24 02/12/24 History Ranolazine [Ranexa] 500 mg PO BID 02/12/24 02/12/24 History Rosuvastatin [Crestor] 20 mg PO DAILY 02/12/24 02/12/24 History Sacubitril/Valsartan [Entresto 24 1 tab PO BID 02/12/24 02/12/24 History mg-26 mg Tablet] carvediloL [Coreg] 12.5 mg PO BID 02/12/24 02/12/24 History Allergies Allergy/AdvReac Type Severity Reaction Status Date / Time atorvastatin AdvReac [email or web address] Verified 02/12/24 15:54 sis Physical Exam Osteopathic Statement: *. No significant issues noted on an osteopathic structural exam other than those noted in the History and Physical/Consult. Vitals: Vital Signs Temp Pulse Resp BP Pulse Ox 02/12/24 10:56 97.9 F 68 20 136/65 96 Intake and Output 02/11/24 02/12/24 02/12/24 22:59 06:59 14:59 Other: Weight 81.647 kg Results CBC & Chem 7: 02/12/24 16:29 02/12/24 11:26 Labs: Abnormal Lab Results - Last 24 Hours (Table) 02/12/24 02/12/24 Range/Units 11:26 11:26 RBC 4.26 L (4.30-5.90) m/uL Hgb 12.5 L (13.0-17.5) gm/dL Hct 38.9 L (39.0-53.0) % Chloride 110 H (98-107) mmol/L BUN 37 H (9-20) mg/dL Creatinine 1.51 H (0.66-1.25) mg/dL Glucose 155 H (74-99) mg/dL
[2024-02-12] MEDS ORDERED: NON FORMULARY DRUG (Insulin Glargine 100 UNIT/ML Vial) SQ PRN (15:35)
[2024-02-12] MEDS ORDERED: DEXTROSE 50% SYRINGE 50 ML IVP PRN ×2 (15:42)
[2024-02-12] MEDS ORDERED: HEPARIN SODIUM 1,000 UN/ML (10ML VL) IV PRN (16:01)
[2024-02-12] MEDS: HEPARIN SOD,PORK IN 0.45% NACL 25,000 UNIT in 0.45% NACL 1 250ML.BAG IV SCH (16:23)
[2024-02-12] MEDS: HEPARIN SODIUM 1,000 UN/ML (10ML VL) IV ONE (16:24)
[2024-02-12 16:50] LABS: Basophils % (A) 1 %; Eosinophils # (A) 0.3 k/uL (0-0.7); Eosinophils % (A) 5 %; HCT 36.7 % (39.0-53.0); HGB 12.1 gm/dL (13.0-17.5); Lymphocytes # (A) 1.3 k/uL (1.0-4.8); Lymphocytes % (A) 23 %; MCH 30.1 pg (25.0-35.0); MCV 91.1 fL (80.0-100.0); Mean Platelet Volume 8.9; Monocytes # (A) 0.3 k/uL (0-1.0); Monocytes % (A) 6 %; Neutrophils # (A) 3.5 k/uL (1.3-7.7); Neutrophils % (A) 62 %; Platelet Count 198 k/uL (150-450); RBC 4.03 m/uL (4.30-5.90); RDW 14.8 % (11.5-15.5); WBC 5.7 k/uL (3.8-10.6)
[2024-02-12 17:27] LABS: Glucose,Whole Blood 86 mg/dL (70-110)
[2024-02-12] MEDS ORDERED: glipiZIDE 10 MG TAB PO SCH (17:30)
[2024-02-12] MEDS ORDERED: MD COMMUNICATION TO PHARMACY 1 EACH MISC PO ONE (17:30)
[2024-02-12] MEDS ORDERED: metFORMIN 500 MG TAB PO SCH (17:30)
[2024-02-12] MEDS: INSULIN ASPART (NovoLOG) 100 UNIT/ML VIAL SQ SCH (17:43)
[2024-02-12] MEDS: METOPROLOL TARTRATE 5 MG/5 ML VIAL IVP SCH (18:07)
[2024-02-12] MEDS: FENOFIBRATE 160 MG TAB PO SCH (18:11)
[2024-02-12] MEDS: DAPAGLIFLOZIN PROPANEDIOL 10 MG TABLET PO SCH (18:11)
[2024-02-12] MEDS: SPIRONOLACTONE 25 MG TAB PO SCH (18:12)
[2024-02-12] MEDS: CLOPIDOGREL 75 MG TAB PO SCH (18:12)
[2024-02-12] MEDS: FUROSEMIDE 20 MG TAB PO SCH (18:12)
[2024-02-12 20:53] LABS: Glucose,Whole Blood 219 mg/dL (70-110)
[2024-02-12] MEDS ORDERED: METOPROLOL TARTRATE 50 MG TAB PO SCH (21:00)
[2024-02-12] MEDS: carvediloL 12.5 MG TAB PO SCH (22:02)
[2024-02-12] MEDS: RANOLAZINE 500 MG TAB.ER.12H PO SCH (22:03)
[2024-02-12] MEDS: SACUBITRIL/VALSARTAN 24 MG-26 MG TABLET PO SCH (22:09)
[2024-02-13] MEDS: ACETAMINOPHEN TAB 325 MG TAB PO STA (01:03)
[2024-02-13 04:11] LABS: Basophils % (A) 1 %; Eosinophils # (A) 0.3 k/uL (0-0.7); Eosinophils % (A) 4 %; HCT 38.9 % (39.0-53.0); HGB 12.6 gm/dL (13.0-17.5); Lymphocytes # (A) 1.4 k/uL (1.0-4.8); Lymphocytes % (A) 22 %; MCH 29.6 pg (25.0-35.0); MCHC 32.4 g/dL (31.0-37.0); MCV 91.4 fL (80.0-100.0); Mean Platelet Volume 8.5; Monocytes # (A) 0.4 k/uL (0-1.0); Monocytes % (A) 7 %; Neutrophils # (A) 4.2 k/uL (1.3-7.7); Neutrophils % (A) 64 %; Platelet Count 178 k/uL (150-450); RBC 4.25 m/uL (4.30-5.90); RDW 14.7 % (11.5-15.5); WBC 6.5 k/uL (3.8-10.6)
[2024-02-13 04:26] LABS: ALT 14 U/L (4-49); AST 26 U/L (17-59); African American GFR (CKD) 45 (>60 ml/min/1.73 sqM); Albumin 3.8 g/dL (3.5-5.0); Alkaline Phosphatase 59 U/L (38-126); Anion Gap 9 mmol/L; Blood Urea Nitrogen 39 mg/dL (9-20); Calcium 8.8 mg/dL (8.4-10.2); Carbon Dioxide 22 mmol/L (22-30); Chloride 108 mmol/L (98-107); Glucose 102 mg/dL (74-99); Magnesium 2.1 mg/dL (1.6-2.3); Non-African American GFR(CKD) 39 (>60 ml/min/1.73 sqM); Potassium 4.2 mmol/L (3.5-5.1); Sodium 139 mmol/L (137-145); Total Bilirubin 0.5 mg/dL (0.2-1.3); Total Protein 6.6 g/dL (6.3-8.2)
[2024-02-13 06:11] LABS: Glucose,Whole Blood 124 mg/dL (70-110)
[2024-02-13] MEDS: Rosuvastatin 20 MG Tablet PO SCH (06:39)
[2024-02-13] MEDS: ASPIRIN 81 MG PO SCH (06:39)
[2024-02-13] MEDS ORDERED: LOSARTAN 50 MG TAB PO SCH (09:00)
[2024-02-13] MEDS ORDERED: ASPIRIN 325 MG TAB PO SCH (09:00)
--- NOTE | 2024-02-13 09:09 | CA ---
Transthoracic Echo Report Name: Danielito Scott Age: 78 Gender: M : 1945 Exam Date: 02/12/2024 16:32 Exam Location: [facility] Ht (in): 70 Wt (lb): 180 Ordering Physician: Maximo Saenz PAC Attending/Referring Phys: YAO, Letty Shower Enclosure Installer Daxa Rangel RDCS Procedure CPT: Indications: Chest Pain Cardiac Hx: Technical Quality: Technically difficult study Contrast 1: Definity Total Dose (mL): 2 Contrast 2: Total Dose (mL): MEASUREMENTS (Male / Female) Normal Values 2D ECHO LV Diastolic Diameter PLAX 5.7 cm 4.2 - 5.9 / 3.9 - 5.3 cm LV Systolic Diameter PLAX 4.9 cm IVS Diastolic Thickness 0.8 cm 0.6 - 1.0 / 0.6 - 0.9 cm LVPW Diastolic Thickness 0.9 cm 0.6 - 1.0 / 0.6 - 0.9 cm LV Relative Wall Thickness 0.3 RV Internal Dim ED PLAX 2.4 cm LVOT Diameter 2.3 cm LV Diastolic Volume MOD BP 239.5 cm??? 67 - 155 / 56 - 104 cm??? LV Systolic Volume MOD BP 197.4 cm??? 22 - 58 / 19 - 49 cm??? LV Ejection Fraction MOD BP 17.6 % >= 55 % LV Cardiac Index MOD BP 1418.6 cm???/min???m??? LV Diastolic Volume MOD 4C 243.8 cm??? LV Systolic Volume MOD 4C 188.6 cm??? LV Ejection Fraction MOD 4C 22.6 % LV Cardiac Index MOD 4C 1857.9 cm???/min???m??? LV Diastolic Length 4C 9.7 cm LV Systolic Length 4C 8.9 cm LV Diastolic Volume MOD 2C 234.1 cm??? LV Systolic Volume MOD 2C 200.9 cm??? LV Ejection Fraction MOD 2C 14.2 % LV Cardiac Index MOD 2C 1120.2 cm???/min???m??? LV Diastolic Length 2C 9.8 cm LV Systolic Length 2C 9.2 cm LA Volume 98.5 cm??? 18 - 58 / 22 - 52 cm??? LA Volume Index 48.8 cm???/m??? 16 - 28 cm???/m??? DOPPLER AV Peak Velocity 119.5 cm/s AV Peak Gradient 5.7 mmHg AV Mean Velocity 82.4 cm/s AV Mean Gradient 3.0 mmHg AV Velocity Time Integral 24.1 cm LVOT Peak Velocity 78.5 cm/s LVOT Peak Gradient 2.5 mmHg LVOT Velocity Time Integral 16.9 cm LVOT Stroke Volume 69.8 cm??? LVOT Stroke Volume Index 34.9 ml/m??? LVOT Cardiac Index 2349.7 cm???/min???m??? AV Area Cont Eq vti 2.9 cm??? AV Area Cont Eq pk 2.7 cm??? MV Area PHT 3.4 cm??? Mitral E Point Velocity 69.1 cm/s Mitral A Point Velocity 87.3 cm/s Mitral E to A Ratio 0.8 MV Deceleration Time 220.2 ms PV Peak Velocity 70.9 cm/s PV Peak Gradient 2.0 mmHg FINDINGS Left Ventricle Left ventricular ejection fraction is estimated at 20-25 %. Severely increased left ventricular diastolic volume. Severely increased left ventricular systolic volume. Severely decreased left ventricular ejection fraction with regional variability. Left ventricular wall thickness normal. Right Ventricle Normal right ventricular size and function. Unable to estimate the right ventricular systolic pressure. Right Atrium Right atrium not well visualized. Left Atrium Severely increased left atrial volume. Mildly increased left atrial area. Mitral Valve Mitral valve thickened. Mitral annular calcification. No evidence for mitral valve prolapse. No mitral stenosis. Mild mitral regurgitation. Aortic Valve Trileaflet aortic valve. No aortic valve stenosis or regurgitation. Tricuspid Valve Structurally normal tricuspid valve. No tricuspid stenosis. Trace tricuspid regurgitation. Pulmonic Valve Pulmonic valve not well visualized. No pulmonic stenosis. Trace pulmonic regurgitation. Pericardium No pericardial effusion. Aorta Aortic annulus normal. Ascending aorta not well visualized. CONCLUSIONS Impaired LV function with an EF between 20-25% with enlarged LV Previewed by: Dr. Edu Howe MD (Electronically Signed) Final Date: 13 Feb 2024 09:09
[2024-02-13 12:27] LABS: Glucose,Whole Blood 113 mg/dL (70-110)
--- NOTE | 2024-02-13 14:08 | NM ---
EXAMINATION TYPE: NM pul vent and perfuse DATE OF EXAM: 02/13/2024 CLINICAL INDICATION: Male, 78 years old with history of elevated d-diimer,chest pain; COMPARISON: 02/12/2024 TECHNIQUE: Utilizing inhalation of 37.1 mCi Tc 99m DTPA aerosol and intravenous injection of 5.2 mCi of Tc 99m MAA, ventilation and perfusion images are acquired post injection in multiple projections. FINDINGS: There is artifact from the cardiac device overlying the left upper lobe. There is a triple match at t he right lung base with corresponding chest x-ray abnormality. IMPRESSION: Intermediate probability for pulmonary embolism by PIOPED criteria.
--- NOTE | 2024-02-13 14:36 | P.CRDCN ---
History of Present Illness Consult date: 02/13/24 Consult reason: chest pain History of present illness: History of present illness: This is a 78-year-old male patient of Dr. Romero with past medical history of coronary artery disease with previous three-vessel CABG in 2012, CVA, left CEA, hypertension, hyperlipidemia, diabetes mellitus type 2, and peripheral vascular disease with previous intervention to his lower extremities, history of SVT status postconversion with adenosine, ischemic cardiomyopathy s/p AICD 3 weeks ago. We have been asked to evaluate the patient for chest pain. Patient states that yesterday, he had chest tightness and dizziness. He had a haircut and when he was done, he was feeling worse. He was across the street from his PCP, Dr. Renteria. He went to the office and he was given NTG s/l and pain was immediately relieved. His BP was high with systolic of 177. Patient was transferred to [facility] ER. He did not have this type of chest pain when he required stents in the past. He thinks he had a cath and PCI one year ago and had another cath in May 2023 that did not require stenting. He also had work up done at [facility] about 6 weeks ago. Last evening, patient had an episode of tachycardia in the 140s that could possibly be atrial flutter. Patient was asymptomatic during that time. He denies any history of atrial fibrillation or atrial flutter. Patient has been started on heparin gtt. EKG paced rhythm with intraventricular conduction delay Chest x-ray: Favor bilateral consolidation and small pleural effusion greater on the right. VQ scan intermediate probablity for PE WBC 6.5, hemoglobin 12.6. Sodium 139, potassium 4.2, BUN 39 creatinine 1.67. Troponin 0.055, 0.089, 0.089. proBNP 2180. Home cardiac medications: Aspirin 81 mg daily, Coreg 12.5 mg twice daily, Plavix 75 mg daily, Farxiga 10 mg daily, fenofibrate 160 mg daily, Lasix 20 mg daily, Nitrostat as needed, Ranexa 500 mg twice daily, rosuvastatin 20 mg daily, Entresto 24 mg - 26 mg 1 twice daily, spironolactone 25 mg daily. Echocardiogram performed 02/12/2024 reveals EF of 20 to 25% with enlarged LV. Review Of Systems: At the time of my exam: CONSTITUTIONAL: Denies fever or chills. HEENT: Denies blurred vision, vision changes, or eye pain. Denies hemoptysis CARDIOVASCULAR: Denies chest pain. Denies orthopnea. Denies PND. Denies palpitations RESPIRATORY: Denies shortness of breath. GASTROINTESTINAL: Denies abdominal pain. Denies nausea or vomiting. HEMATOLOGIC: Denies bleeding disorders. GENITOURINARY: Denies any blood in urine. SKIN: Denies pruitis. Denies rash. Physical examination: Gen: This is a a 78-year-old male in no acute distress VS: reviewed, blood pressure 135/68, heart rate 74, pulse ox 97% on room air. HEENT: Head is atraumatic, normocephalic. Pupils equal, round. Sclerae is anicteric. NECK: Supple. No JVD. LUNGS: Clear to auscultation. No wheezes or rhonchi. No intercostal retractions. HEART: Regular rate and rhythm. No murmur. ABDOMEN: Soft No tenderness. EXTREMITIES: No pedal edema. No calf tenderness. NEUROLOGICAL: Patient is awake, alert and oriented x3. Assessment: Chest pain concerning for CAD etiology, possibly related to tachycardia Elevated troponins Intermediate probability of PE on VQ scan Tachycardia, possible atrial flutter History of coronary artery disease with previous CABG CVA Left CEA Hypertension Hyperlipidemia Diabetes mellitus type 2 History of SVT status postconversion with adenosine ischemic cardiomyopathy Plan: Resume patient's home cardiac medications Continue heparin gtt Further recommendations to follow based upon clinical course Thank you kindly for this consultation. Nurse practitioner note has been reviewed, I agree with documented findings and plan of care. Patient was seen and examined. Past Medical History Past Medical History: CVA/TIA, Diabetes Mellitus, GERD/Reflux, Hyperlipidemia, Hypertension, Myocardial Infarction ([place]), Sleep Apnea/CPAP/BIPAP Additional Past Medical History / Comment(s): CVA 2012-NO RESIDUAL, PVD Last Myocardial Infarction Date:: 2012 History of Any Multi-Drug Resistant Organisms: None Reported Past Surgical History: Coronary Bypass/CABG, Heart Catheterization, Joint Replacement, Orthopedic Surgery, Pacemaker Additional Past Surgical History / Comment(s): LT CAROTID ENDARTERECTOMY,CABG-3 VESSEL,GEORGE LOWER EXT VASCULAR PROCEDURES, SLEEP APNEA SURGERY,NASAL SURGERY,LT GREAT TOE JT REPLACEMENT,DENTAL IMPLANTS,ORIF LT ANKLE-HARDWARE LATER REMOVED, COLONOSCOPY, BILAT CATARACTS REMOVED-LENS IMPLANT Past Anesthesia/Blood Transfusion Reactions: No Reported Reaction Type of Cardiac Device: Permanent Pacemaker Device Placement Date:: 01/28/2024 Past Psychological History: No Psychological Hx Reported Smoking Status: Never smoker Past Alcohol Use History: Rare Past Drug Use History: None Reported - Past Family History Brother(s) Family Medical History: Cancer Additional Family Medical History / Comment(s): BRAIN Medications and Allergies Home Medications Medication Instructions Recorded Confirmed Type Insulin Glargine [Lantus Vial] 10 unit SQ HS PRN 11/24/14 02/12/24 History metFORMIN HCL [Glucophage] 1,000 mg PO AC-BID 11/24/14 02/12/24 History INSULIN ASPART (NovoLOG) [NovoLOG See Protocol SQ AC-TID 08/05/22 02/12/24 History (formulary)] glipiZIDE [Glucotrol] 10 mg PO AC-BID 08/05/22 02/12/24 History Aspirin 81 mg PO DAILY tab 08/08/22 02/12/24 Rx Furosemide [Lasix] 20 mg PO DAILY 30 Days #30 tab 08/08/22 02/12/24 Rx Spironolactone [Aldactone] 25 mg PO DAILY 30 Days #30 tab 08/08/22 02/12/24 Rx Clopidogrel [Plavix] 75 mg PO DAILY 02/12/24 02/12/24 History Dapagliflozin Propanediol [Farxiga] 10 mg PO DAILY 02/12/24 02/12/24 History Fenofibrate [Lofibra] 160 mg PO DAILY 02/12/24 02/12/24 History INSULIN ASPART (NovoLOG) [NovoLOG 3 - 5 unit SQ AC-TID 02/12/24 02/12/24 History (formulary)] Nitroglycerin Sl Tabs [Nitrostat] 0.4 mg SL Q5M PRN 02/12/24 02/12/24 History Ranolazine [Ranexa] 500 mg PO BID 02/12/24 02/12/24 History Rosuvastatin [Crestor] 20 mg PO DAILY 02/12/24 02/12/24 History Sacubitril/Valsartan [Entresto 24 1 tab PO BID 02/12/24 02/12/24 History mg-26 mg Tablet] carvediloL [Coreg] 12.5 mg PO BID 02/12/24 02/12/24 History Allergies Allergy/AdvReac Type Severity Reaction Status Date / Time atorvastatin AdvReac [email or web address] Verified 02/12/24 15:54 sis Physical Exam Vitals: Vital Signs Temp Pulse Pulse Resp BP BP Pulse Ox 02/13/24 06:37 74 16 135/68 97 02/13/24 04:00 55 L 16 107/68 96 02/12/24 22:00 98 F 88 16 128/84 99 02/12/24 21:10 97.7 F 76 18 130/65 94 L 02/12/24 18:48 74 18 127/63 02/12/24 18:31 71 18 127/63 02/12/24 18:00 140 H 02/12/24 17:39 138 H 18 146/100 02/12/24 16:36 70 18 127/68 02/12/24 10:56 97.9 F 68 20 136/65 96 Intake and Output 02/12/24 02/13/24 02/13/24 22:59 06:59 14:59 Intake Total 127.674 Output Total 575 Balance -447.326 Intake: Intake, IV Titration 127.674 Amount Heparin Sod,Pork in 0.45% 127.674 NaCl 25,000 unit In 0.45 % NaCl 1 250ml.bag @ 12 UNITS/KG/HR 9.798 mls/hr IV .Q24H [facility] Rx#: [id number] Output: Urine 575 Other: Weight 81.647 kg Results 02/13/24 03:27 02/13/24 03:27 Cardiac Enzymes 02/12/24 02/12/24 02/12/24 Range/Units 11:26 11:26 14:30 AST 25 (17-59) U/L Troponin I <0.012 0.055 H* (0.000-0.034) ng/mL 02/12/24 02/12/24 02/13/24 Range/Units 16:29 20:07 03:27 AST 26 (17-59) U/L Troponin I 0.089 H* 0.089 H* (0.000-0.034) ng/mL Coagulation 02/12/24 02/12/24 02/13/24 Range/Units 11:26 23:27 03:27 PT 11.3 (10.0-12.5) sec APTT 22.3 39.0 H 45.9 H (22.0-30.0) sec CBC 02/12/24 02/12/24 02/13/24 Range/Units 11:26 16:29 03:27 WBC 7.1 5.7 6.5 (3.8-10.6) k/uL RBC 4.26 L 4.03 L 4.25 L (4.30-5.90) m/uL Hgb 12.5 L 12.1 L 12.6 L (13.0-17.5) gm/dL Hct 38.9 L 36.7 L 38.9 L (39.0-53.0) % Plt Count 200 198 178 (150-450) k/uL Comprehensive Metabolic Panel 02/12/24 02/13/24 Range/Units 11:26 03:27 Sodium 141 139 (137-145) mmol/L Potassium 4.5 4.2 (3.5-5.1) mmol/L Chloride 110 H 108 H (98-107) mmol/L Carbon Dioxide 25 22 (22-30) mmol/L BUN 37 H 39 H (9-20) mg/dL Creatinine 1.51 H 1.67 H (0.66-1.25) mg/dL Glucose 155 H 102 H (74-99) mg/dL Calcium 8.9 8.8 (8.4-10.2) mg/dL AST 25 26 (17-59) U/L ALT 15 14 (4-49) U/L Alkaline Phosphatase 56 59 (38-126) U/L Total Protein 6.9 6.6 (6.3-8.2) g/dL Albumin 3.8 3.8 (3.5-5.0) g/dL Current Medications Generic Name Dose Route Start Last Admin Trade Name Freq PRN Reason Stop Dose Admin Aspirin 81 mg 02/13/24 09:00 02/13/24 06:39 Aspirin 81 Mg PO 81 mg DAILY [facility] Administration Carvedilol 12.5 mg 02/12/24 21:00 02/13/24 06:38 Carvedilol 12.5 Mg Tab PO 12.5 mg BID [facility] Administration Clopidogrel Bisulfate 75 mg 02/12/24 17:30 02/13/24 06:39 Clopidogrel 75 Mg Tab PO 75 mg DAILY [facility] Administration Dapagliflozin 10 mg 02/12/24 17:30 02/13/24 06:39 Dapagliflozin Propanediol 10 Mg Tablet PO 10 mg DAILY [facility] Administration Dextrose/Water 25 ml 02/12/24 15:42 Dextrose 50% Syringe 50 Ml IVP PER PROTOCOL PRN Hypoglycemia Protocol Dextrose/Water 50 ml 02/12/24 15:42 Dextrose 50% Syringe 50 Ml IVP PER PROTOCOL PRN Hypoglycemia Protocol Fenofibrate 160 mg 02/12/24 17:30 02/13/24 06:38 Fenofibrate 160 Mg Tab PO 160 mg DAILY [facility] Administration Furosemide 20 mg 02/12/24 17:30 02/12/24 18:12 Furosemide 20 Mg Tab PO 20 mg DAILY [facility] Administration Heparin Sodium (Porcine) 0 unit 02/12/24 16:01 Heparin Sodium 1,000 Un/Ml (10ml Vl) IV PER PROTOCOL PRN Low PTT Protocol Heparin Sodium/Sodium Chloride 250 mls @ 9.798 mls/hr 02/12/24 16:15 02/13/24 04:52 25,000 unit/ Sodium Chloride IV 14 units/kg/hr .Q24H [facility] 11.431 mls/hr Titration Protocol 12 UNITS/KG/HR Insulin Aspart 0 unit 02/12/24 17:30 02/13/24 06:13 Insulin Aspart (Novolog) 100 Unit/Ml Vial SQ Not Given ACHS [facility] Protocol Nitroglycerin 1 inch 02/12/24 14:15 02/13/24 05:24 Nitroglycerin Oint 1 Inch/Gm Packet TOPICAL Not Given Q6HR [facility] Rosuvastatin 20 Mg 20 mg 02/13/24 09:00 02/13/24 06:39 Tablet PO Not Given DAILY [facility] Ranolazine 500 mg 02/12/24 21:00 02/13/24 06:38 Ranolazine 500 Mg Tab.Er.12h PO 500 mg BID [facility] Administration Sacubitril/Valsartan 1 each 02/12/24 21:00 02/13/24 06:38 Sacubitril/Valsartan 24 Mg-26 Mg Tablet PO 1 each BID [facility] Administration Spironolactone 25 mg 02/12/24 17:30 02/12/24 18:12 Spironolactone 25 Mg Tab PO 25 mg DAILY [facility] Administration Intake and Output 02/12/24 02/13/24 02/13/24 22:59 06:59 14:59 Intake Total 127.674 Output Total 575 Balance -447.326 Intake: Intake, IV Titration 127.674 Amount Heparin Sod,Pork in 0.45% 127.674 NaCl 25,000 unit In 0.45 % NaCl 1 250ml.bag @ 12 UNITS/KG/HR 9.798 mls/hr IV .Q24H [facility] Rx#: [id number] Output: Urine 575 Other: Weight 81.647 kg 02/13/24 03:27 02/13/24 03:27
[2024-02-13] MEDS ORDERED: HEPARIN SODIUM 1,000 UN/ML (10ML VL) IV PRN (15:54)
--- NOTE | 2024-02-13 16:04 | P.PN ---
Subjective Progress Note Date: 02/13/24 Hospital course: Patient is a very pleasant 78-year-old male with a past medical history of CAD status post stenting x 5 and CABG x 4, ischemic cardiomyopathy,hypertension, hyperlipidemia, chronic systolic heart failure, chronic kidney disease stage IIIb and insulin-dependent diabetes mellitus. Patient reported he follows with Dr. 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 Patient reported since procedure he has been feeling fine, however he awoke this morning feeling nauseous and pain/tightness across his entire chest radiating into his right shoulder. Patient reported that shortly followed by exertional shortness of breath. He reported taking sublingual nitro without relief and stated that he was close to his PCPs office so he went there for evaluation and they called an ambulance for transfer to the emergency department. He underwent evaluation in the emergency department. Vital signs upon arrival show blood pressure 136/65, heart rate 68, respiratory rate 20, temp 97.9 F, and SpO2 of 96% on room air. EKG completed showing an atrial paced rhythm at 67 bpm with occasional PVC. Chest x-ray showing bilateral consolidation and small pleural effusion greater on the right. Labs completed and reviewed. CBC showing stable normocytic anemia with hemoglobin of 12.5. Coagulation profile normal findings. BMP showing elevated chloride of 110 and consistent with stage IIIb CKD with BUN of 37, creatinine 1.51, GFR 44. Magnesium 1.9. Liver profile unremarkable. Troponin less than 0.012 and proBNP 2180. Patient admitted under our services with consultation to cardiology. Troponins trended resulting at less than 0.012, 0.055, and 0.089. Patient started on low intensity heparin infusion. Patient later had episode of asymptomatic sinus tachycardia with heart rate elevating in 140s. EKG repeated at this time showing sinus tachycardia at [address]/T wave abnormalities in lateral leads. Patient was given IV Lopressor resulting in return of normal sinus mechanism. Order placed for D-dimer which resulted elevated at 2.10. VQ scan completed showing intermediate probability for pulmonary emboli. Low intensity heparin infusion discontinued and patient placed on high intensity heparin infusion at this time. Physical exam: Patient seen and fully evaluated at bedside this morning. He reports no further episodes of chest pain/discomfort. He had no further episodes of sinus tachycardia since receiving dose of IV Lopressor and continuation of daily carvedilol. Vital signs reviewed and stable. General: Nontoxic, no distress and appears stated age. Derm: Skin warm and dry, normal coloration for ethnicity. Head: Atraumatic, normocephalic and symmetric. Eyes: EOMs intact, no lid lag, and anicteric sclera Mouth: no lip lesions, mucus membranes moist Cardiovascular: regular rate and rhythm with normal S1S2, systolic murmur, positive posterior tibial pulses bilaterally, and cap refill < 2 seconds. Pacemaker insertion site left anterior chest appears to be healing well with no surrounding erythema or drainage noted. Lungs: Respirations even, regular, and unlabored on room air. Lungs CTA bilaterally, no rhonchi, no rales, no wheezing, and no accessory muscle usage. Abdominal: soft, nontender to palpation, no guarding, no appreciable organomegaly Ext: ROM intact. No gross muscle atrophy, no edema, no contractures Neuro: Speech clear, face symmetrical and CN II-XII grossly intact with no noted focal neuro deficits Psych: Alert and oriented to person, place, time, and situation. Appropriate and pleasant affect. Assessment and Plan of Care: Chest Pain with Elevated Troponins, possibly type II NSTEMI from sinus tachycardia Elevated D-dimer with intermediate probability for pulmonary emboli Sinus tachycardia Status post recent AICD placement History of CAD status post stenting x 5 and CABG x 4 Ischemic cardiomyopathy Chronic systolic heart failure, per patient EF recently 30-35% Hypertension Hyperlipidemia Chronic kidney disease stage IIIb -Cardiology consulted, reviewed documentation in chart. -D-dimer was elevated at 2.10. VQ scan completed showing intermediate probability for pulmonary emboli. -Low intensity heparin infusion discontinued and patient placed on high intensity heparin infusion at this time. With continued close monitoring of PTT every 6 hours for goal therapeutic range of 44 to 79 ms. -Obtain pacemaker interrogation report -Telemetry monitoring -Cardiac diet -Continue cardiac medication regimen with aspirin 81 mg daily, carvedilol 12.5 mg twice daily, Plavix 75 mg daily, Jardiance 10 mg daily, fenofibrate 160 mg daily, furosemide 20 mg daily, Ranexa 500 mg twice daily, rosuvastatin 20 mg daily, Entresto 24/26 mg tablet twice daily, and Aldactone 25 mg daily. -Echocardiogram completed showing impaired EF of 20 to 25%. -Order placed for bilateral lower extremity Dopplers. Insulin-dependent diabetes mellitus -Patient placed on glycemic protocol with NovoLog sliding scale. Data and imaging reviewed: VQ scan completed showing intermediate probability for pulmonary emboli. -Echocardiogram completed showing impaired EF of 20 to 25%. -Vital signs reviewed. Blood pressure 135/68, heart rate 74, respiratory rate 16, temp 98.0 F, and SpO2 of 97% on room air. Morning labs reviewed. CBC showing stable normocytic anemia with hemoglobin of 12.6. PTT therapeutic at 45.9. BMP showing hyperchloremia with chloride of 108 and elevated but stable renal function with BUN of 39, creatinine 1.67, GFR of 39. Magnesium 2.1. The patient is admitted with an anticipated less than 2 midnight stay for evaluation of chest pain CODE STATUS: Full code DVT prophylaxis: Heparin Anticipated discharge date: Clinical course to determine Anticipated discharge place: Home Patient was seen independently by Nurse Practitioner. This document was prepared using [employer] Access dictation software. Please allow for errors in direct entry midwife while rare they do occur. Stefano Landry NP rendered care for this patient independently, reviewed the findings and plan as documented in the note above. I did not physically speak with or examine the patient on this date. Objective - Vital Signs Vital signs: Vital Signs Temp 98 F 02/12/24 22:00 Pulse 74 02/13/24 06:37 Resp 16 02/13/24 06:37 BP 135/68 02/13/24 06:37 Pulse Ox 97 02/13/24 06:37 FiO2 Intake & Output 02/12/24 02/13/24 02/13/24 18:59 06:59 18:59 Intake Total 127.674 Output Total 575 Balance -447.326 Weight 81.647 kg 81.647 kg Intake: Intake, IV Titration 127.674 Amount Heparin Sod,Pork in 0.45% 127.674 NaCl 25,000 unit In 0.45 % NaCl 1 250ml.bag @ 12 UNITS/KG/HR 9.798 mls/hr IV .Q24H SATURNINO Rx#: [id number] Output: Urine 575 - Labs CBC & Chem 7: 02/13/24 03:27 02/13/24 03:27 Labs: Abnormal Lab Results - Last 24 Hours (Table) 02/12/24 02/12/24 02/12/24 Range/Units 11:26 11:26 14:30 RBC 4.26 L (4.30-5.90) m/uL Hgb 12.5 L (13.0-17.5) gm/dL Hct 38.9 L (39.0-53.0) % APTT (22.0-30.0) sec D-Dimer (<0.60) mg/L FEU Chloride 110 H (98-107) mmol/L BUN 37 H (9-20) mg/dL Creatinine 1.51 H (0.66-1.25) mg/dL Glucose 155 H (74-99) mg/dL POC Glucose (mg/dL) (70-110) mg/dL Hemoglobin A1c (<=6.0) % Troponin I 0.055 H* (0.000-0.034) ng/mL 02/12/24 02/12/24 02/12/24 Range/Units 16:29 16:29 16:29 RBC 4.03 L (4.30-5.90) m/uL Hgb 12.1 L (13.0-17.5) gm/dL Hct 36.7 L (39.0-53.0) % APTT (22.0-30.0) sec D-Dimer (<0.60) mg/L FEU Chloride (98-107) mmol/L BUN (9-20) mg/dL Creatinine (0.66-1.25) mg/dL Glucose (74-99) mg/dL POC Glucose (mg/dL) (70-110) mg/dL Hemoglobin A1c 8.2 H (<=6.0) % Troponin I 0.089 H* (0.000-0.034) ng/mL 02/12/24 02/12/24 02/12/24 Range/Units 20:07 20:07 20:51 RBC (4.30-5.90) m/uL Hgb (13.0-17.5) gm/dL Hct (39.0-53.0) % APTT (22.0-30.0) sec D-Dimer 2.10 H (<0.60) mg/L FEU Chloride (98-107) mmol/L BUN (9-20) mg/dL Creatinine (0.66-1.25) mg/dL Glucose (74-99) mg/dL POC Glucose (mg/dL) 219 H (70-110) mg/dL Hemoglobin A1c (<=6.0) % Troponin I 0.089 H* (0.000-0.034) ng/mL 02/12/24 02/13/24 02/13/24 Range/Units 23:27 03:27 03:27 RBC 4.25 L (4.30-5.90) m/uL Hgb 12.6 L (13.0-17.5) gm/dL Hct 38.9 L (39.0-53.0) % APTT 39.0 H 45.9 H (22.0-30.0) sec D-Dimer (<0.60) mg/L FEU Chloride (98-107) mmol/L BUN (9-20) mg/dL Creatinine (0.66-1.25) mg/dL Glucose (74-99) mg/dL POC Glucose (mg/dL) (70-110) mg/dL Hemoglobin A1c (<=6.0) % Troponin I (0.000-0.034) ng/mL 02/13/24 02/13/24 Range/Units 03:27 05:56 RBC (4.30-5.90) m/uL Hgb (13.0-17.5) gm/dL Hct (39.0-53.0) % APTT (22.0-30.0) sec D-Dimer (<0.60) mg/L FEU Chloride 108 H (98-107) mmol/L BUN 39 H (9-20) mg/dL Creatinine 1.67 H (0.66-1.25) mg/dL Glucose 102 H (74-99) mg/dL POC Glucose (mg/dL) 124 H (70-110) mg/dL Hemoglobin A1c (<=6.0) % Troponin I (0.000-0.034) ng/mL
--- NOTE | 2024-02-13 16:24 | US ---
EXAMINATION TYPE: US venous doppler duplex LE DATE OF EXAM: 02/13/2024 3:52 PM COMPARISON: NONE CLINICAL INDICATION: Male, 78 years old with history of evaluate for DVT; pain SIDE PERFORMED: Bilateral TECHNIQUE: The lower extremity deep venous system is examined utilizing real time linear array sonog bradley with graded compression, doppler sonography and color-flow sonography. VESSELS IMAGED: Common Femoral Vein Deep Femoral Vein Greater Saphenous Vein * Femoral Vein Popliteal Vein Small Saphenous Vein * Proximal Calf Veins (* superficial vessels) The deep venous systems of both lower extremities from the common femoral remains to the proximal mt f veins are patent and compressible with augmentable flow and with normal waveforms. IMPRESSION: No evidence of bilateral lower extremity DVT from the common femoral veins to the proximal calf veins
[2024-02-13 16:39] LABS: Glucose,Whole Blood 314 mg/dL (70-110)
[2024-02-13] MEDS: HYDROcodone/APAP 5-325MG 1 EACH TAB PO PRN (18:43)
[2024-02-13] MEDS: HEPARIN SOD,PORK IN 0.45% NACL 25,000 UNIT in 0.45% NACL 1 250ML.BAG IV SCH (19:08)
[2024-02-13 20:24] LABS: Glucose,Whole Blood 178 mg/dL (70-110)
[2024-02-13 23:06] LABS: Glucose,Whole Blood 70 mg/dL (70-110)
[2024-02-13 23:16] VITALS: TEMP 97.4
[2024-02-14 04:45] VITALS: RESP 18
[2024-02-14 06:29] LABS: Glucose,Whole Blood 134 mg/dL (70-110)
[2024-02-14 09:18] LABS: HCT 38.4 % (39.0-53.0); HGB 12.1 gm/dL (13.0-17.5); MCHC 31.4 g/dL (31.0-37.0); MCV 92.5 fL (80.0-100.0); Mean Platelet Volume 9.1; Platelet Count 206 k/uL (150-450); RBC 4.16 m/uL (4.30-5.90); RDW 14.7 % (11.5-15.5); WBC 7.4 k/uL (3.8-10.6)
[2024-02-14 10:05] LABS: ALT 15 U/L (4-49); AST 22 U/L (17-59); African American GFR (CKD) 43 (>60 ml/min/1.73 sqM); Albumin 3.6 g/dL (3.5-5.0); Alkaline Phosphatase 60 U/L (38-126); Anion Gap 8 mmol/L; Blood Urea Nitrogen 38 mg/dL (9-20); Calcium 9.2 mg/dL (8.4-10.2); Carbon Dioxide 21 mmol/L (22-30); Chloride 108 mmol/L (98-107); Glucose 232 mg/dL (74-99); Magnesium 2.3 mg/dL (1.6-2.3); Non-African American GFR(CKD) 38 (>60 ml/min/1.73 sqM); Potassium 4.7 mmol/L (3.5-5.1); Sodium 137 mmol/L (137-145); Total Bilirubin 0.5 mg/dL (0.2-1.3); Total Protein 6.4 g/dL (6.3-8.2)
[2024-02-14 11:43] LABS: Glucose,Whole Blood 338 mg/dL (70-110)
[2024-02-14] MEDS: carvediloL 12.5 MG TAB PO STA (12:02)
[2024-02-14 12:35] VITALS: BP 100/63; PULSE 69
--- NOTE | 2024-02-14 14:18 | XR ---
EXAMINATION TYPE: XR shoulder complete RT DATE OF EXAM: 02/13/2024 7:05 PM CLINICAL INDICATION:Male, 78 years old with history of right shoulder pain; [facility] COMPARISON: None TECHNIQUE: XR shoulder complete RT; examined in AP, internally rotated and scapular Y projections. FINDINGS: No evidence of acute osseous pathology, joint dislocation, or soft tissue swelling. The remaining po rtions of the visualized chest are unremarkable. Mild degeneration changes of the acromion, distal c lavicle with osteophyte formation. There is osteophyte formation of the glenoid and humeral head. The re is joint space narrowing of glenohumeral joint. Small right pleural effusion. Sternotomy wires and cardiac conduction leads present. IMPRESSION: 1. No acute osseous pathology. 2. Mild shoulder osteoarthrosis. 3. Small right pleural fusion with mild pulmonary edema. Correlate with serum BNP.
--- NOTE | 2024-02-14 14:20 | P.DS ---
Providers Date of admission: 02/12/24 13:48 Expected date of discharge: 02/14/24 Attending physician: Heather Rosa DO Consults: 02/12/24 14:05 Consult Physician Urgent Consulting Provider: Armen Moulton Consult Reason/Comments: chest pain Do you want consulting provider notified?: Yes Primary care physician: [facility] Course: Discharge Diagnosis: Chest Pain with Elevated Troponins, likely type II NSTEMI from sinus tachycardia. Acute coronary event was ruled out. Pathology Transcriptionist reviewed cardiac cath records from [facility] completed 4 weeks ago. Pacemaker interrogation report also reviewed. Patient free from chest pain/discomfort since initial arrival. Cleared from cardiac perspective. Patient to follow-up outpatient with personal senior software development manager Dr. Romero at [facility]. Elevated D-dimer with intermediate probability for pulmonary emboli, D-dimer is believed to be elevated secondary to recent surgical procedure with AICD placement, patient is asymptomatic for any shortness of breath, and no clinical signs of DVT or PE. Bilateral lower extremity Dopplers negative. Pacemaker interrogation report reviewed by senior software development manager, he stated no evidence of atrial fibrillation/flutter. No documented pulmonary hypertension on the echocardiogram. VQ scan inconclusive showing intermediate probability for PE, and patient's Wells score is 1.5. Clinical suspicion of PE is therefore very low. Discussed with senior software development manager, heparin infusion discontinued and no need for any further anticoagulation at this time. Sinus tachycardia, atrial tachycardia. Right shoulder pain. X-ray right shoulder completed. Right shoulder pain likely secondary to mild shoulder osteoarthrosis. Recommend rest and alternation of heat/ice packs. Patient may take Tylenol arthritis for pain management. Recommend outpatient follow-up with orthopedic surgeon for further evaluation. Status post recent AICD placement History of CAD status post stenting and CABG Ischemic cardiomyopathy with EF of 20 to 25%. Chronic systolic heart failure Hypertension Hyperlipidemia Chronic kidney disease stage IIIb \ Insulin-dependent diabetes mellitus Hospital course: Patient is a very pleasant 78-year-old male with a past medical history of CAD status post stenting x 5 and CABG x 4, ischemic cardiomyopathy,hypertension, hyperlipidemia, chronic systolic heart failure, chronic kidney disease stage IIIb and insulin-dependent diabetes mellitus. Patient reported he follows with Dr. Romero out of [facility] for his senior software development manager and recently underwent AICD placement 3 weeks ago secondary to his ischemic cardiomyopathy with reported EF of 30 to 35%. Patient presented to the hospital on 02/12/2024 for chief complaint of chest pain radiating to right shoulder he underwent evaluation in the emergency department. Vital signs upon arrival show blood pressure 136/65, heart rate 68, respiratory rate 20, temp 97.9 F, and SpO2 of 96% on room air. EKG completed showing an atrial paced rhythm at 67 bpm with occasional PVC. Chest x-ray showing bilateral consolidation and small pleural effusion greater on the right. Labs completed and reviewed. CBC showing stable normocytic anemia with hemoglobin of 12.5. Coagulation profile normal findings. BMP showing elevated chloride of 110 and consistent with stage IIIb CKD with BUN of 37, creatinine 1.51, GFR 44. Magnesium 1.9. Liver profile unremarkable. Troponin less than 0.012 and proBNP 2180. Patient admitted under our services with consultation to cardiology. Troponins trended resulting at less than 0.012, 0.055, and 0.089. Patient started on low intensity heparin infusion. Patient later had episode of asymptomatic sinus tachycardia with heart rate elevating in 140s. EKG repeated at this time showing sinus tachycardia at [address]/T wave abnormalities in lateral leads. Patient was given IV Lopressor resulting in return of normal sinus mechanism. Order placed for D- dimer which resulted elevated at 2.10. VQ scan completed showing intermediate probability for pulmonary emboli. Low intensity heparin infusion discontinued and patient placed on high intensity heparin infusion at this time pending further evaluation. Echocardiogram completed showing impaired EF of 20 to 25%.. D-dimer is believed to be elevated secondary to recent surgical procedure with AICD placement, patient is asymptomatic for any shortness of breath, and no clinical signs of DVT or PE. Bilateral lower extremity Dopplers negative. Pacemaker interrogation report reviewed by senior software development manager, he stated no evidence of atrial fibrillation/flutter. No documented pulmonary hypertension on the echocardiogram. VQ scan inconclusive showing intermediate probability for PE, and patient's Wells score is 1.5. Clinical suspicion of PE is therefore very low. Discussed with senior software development manager, heparin infusion discontinued and no need for any further anticoagulation at this time. Patient cleared from cardiac perspective for discharge. Patient currently free from any complaints or concerns at this time with the exception of mild right shoulder pain. Medically, he is stable for discharge at this time and reports being very eager to get back home. Patient informed he will need to follow-up outpatient with his PCP in 1 to 2 days, senior software development manager in 1 week, and orthopedic surgeon for further evaluation of right shoulder osteoarthrosis. Physical exam: Vital signs reviewed and stable. General: Nontoxic, no distress and appears stated age. Derm: Skin warm and dry, normal coloration for ethnicity. Head: Atraumatic, normocephalic and symmetric. Eyes: EOMs intact, no lid lag, and anicteric sclera Mouth: no lip lesions, mucus membranes moist Cardiovascular: regular rate and rhythm with normal S1S2, systolic murmur, positive posterior tibial pulses bilaterally, and cap refill < 2 seconds. Pacemaker insertion site left anterior chest appears to be healing well with no surrounding erythema or drainage noted. Lungs: Respirations even, regular, and unlabored on room air. Lungs CTA bilaterally, no rhonchi, no rales, no wheezing, and no accessory muscle usage. Abdominal: soft, nontender to palpation, no guarding, no appreciable organomegaly Ext: ROM intact. No gross muscle atrophy, no edema, no contractures Neuro: Speech clear, face symmetrical and CN II-XII grossly intact with no noted focal neuro deficits Psych: Alert and oriented to person, place, time, and situation. Appropriate and pleasant affect. A total of 34 minutes of time were spent preparing this complex discharge summary. Pt was discharged on 02/14/2024 at 2:03 PM. Patient was seen independently by Nurse Practitioner. This document was prepared using [employer] dictation software. Please allow for errors in cellulose insulation helper while rare they do occur. Stefano Landry NP rendered care for this patient independently, reviewed the findings and plan as documented in the note above. . Patient Condition at Discharge: Stable Plan - Discharge Summary Discharge Rx Participant: No New Discharge Prescriptions: Continue metFORMIN HCL [Glucophage] 1,000 mg PO AC-BID Insulin Glargine [Lantus Vial] 10 unit SQ HS PRN PRN Reason: high bs glipiZIDE [Glucotrol] 10 mg PO AC-BID Aspirin 81 mg PO DAILY tab Furosemide [Lasix] 20 mg PO DAILY 30 Days #30 tab Sacubitril/Valsartan [Entresto 24 mg-26 mg Tablet] 1 tab PO BID Ranolazine [Ranexa] 500 mg PO BID INSULIN ASPART (NovoLOG) [NovoLOG (formulary)] 3 - 5 unit SQ AC-TID INSULIN ASPART (NovoLOG) [NovoLOG (formulary)] See Protocol SQ AC-TID Spironolactone [Aldactone] 25 mg PO DAILY 30 Days #30 tab Rosuvastatin [Crestor] 20 mg PO DAILY Nitroglycerin Sl Tabs [Nitrostat] 0.4 mg SL Q5M PRN PRN Reason: Chest Pain Fenofibrate [Lofibra] 160 mg PO DAILY Clopidogrel [Plavix] 75 mg PO DAILY carvediloL [Coreg] 12.5 mg PO BID Dapagliflozin Propanediol [Farxiga] 10 mg PO DAILY Discharge Medication List Insulin Glargine [Lantus Vial] 10 unit SQ HS PRN 11/24/14 [History] metFORMIN HCL [Glucophage] 1,000 mg PO AC-BID 11/24/14 [History] INSULIN ASPART (NovoLOG) [NovoLOG (formulary)] See Protocol SQ AC-TID 08/05/22 [History] glipiZIDE [Glucotrol] 10 mg PO AC-BID 08/05/22 [History] Aspirin 81 mg PO DAILY tab 08/08/22 [Rx] Furosemide [Lasix] 20 mg PO DAILY 30 Days #30 tab 08/08/22 [Rx] Spironolactone [Aldactone] 25 mg PO DAILY 30 Days #30 tab 08/08/22 [Rx] Clopidogrel [Plavix] 75 mg PO DAILY 02/12/24 [History] Dapagliflozin Propanediol [Farxiga] 10 mg PO DAILY 02/12/24 [History] Fenofibrate [Lofibra] 160 mg PO DAILY 02/12/24 [History] INSULIN ASPART (NovoLOG) [NovoLOG (formulary)] 3 - 5 unit SQ AC-TID 02/12/24 [History] Nitroglycerin Sl Tabs [Nitrostat] 0.4 mg SL Q5M PRN 02/12/24 [History] Ranolazine [Ranexa] 500 mg PO BID 02/12/24 [History] Rosuvastatin [Crestor] 20 mg PO DAILY 02/12/24 [History] Sacubitril/Valsartan [Entresto 24 mg-26 mg Tablet] 1 tab PO BID 02/12/24 [History] carvediloL [Coreg] 12.5 mg PO BID 02/12/24 [History] Follow up Appointment(s)/Referral(s): Maximo Renteria DO [Primary Care Provider] - 1-2 days Vinh Griffith MD [Medical Doctor] - 1 Week (Recommend outpatient follow up for osteoarthrosis of right shoulder. ) Patient Instructions/Handouts: Chest Pain (DC), Osteoarthritis (DC), Atrial Tachycardia (DC) Activity/Diet/Wound Care/Special Instructions: Activity: As tolerated. Take breaks as needed. Diet: Heart healthy and carb consistent diet. Avoid salts, or foods with hidden salts such as canned or boxed foods and frozen dinners. Extra salt makes your heart work harder and traps the fluid in your body for longer. Special Instructions: Take all of your medications as directed and remember to keep all of your doctor's appointments and follow-up as needed. It is important for you to follow-up with your primary senior software development manager Dr. Romero out of [facility]. Recommend calling office Friday and notifying of hospitalization and scheduling follow-up appointment. Thank you for allowing us to participate in your care, it was truly a pleasure having you for our patient!!! . Discharge Disposition: HOME SELF-CARE
--- NOTE | 2024-02-14 15:35 | P.PN ---
Subjective Progress Note Date: 02/14/24 Consult reason: chest pain History of present illness: History of present illness: This is a 78-year-old male patient of Dr. Romero with past medical history of coronary artery disease with previous three-vessel CABG in 2012, CVA, left CEA, hypertension, hyperlipidemia, diabetes mellitus type 2, and peripheral vascular disease with previous intervention to his lower extremities, history of SVT status postconversion with adenosine, ischemic cardiomyopathy s/p AICD 3 weeks ago. We have been asked to evaluate the patient for chest pain. Patient states that yesterday, he had chest tightness and dizziness. He had a haircut and when he was done, he was feeling worse. He was across the street from his PCP, Dr. Renteria. He went to the office and he was given NTG s/l and pain was immediately relieved. His BP was high with systolic of 177. Patient was transferred to [facility]. He did not have this type of chest pain when he required stents in the past. He thinks he had a cath and PCI one year ago and had another cath in May 2023 that did not require stenting. He also had work up done at [place] about 6 weeks ago. Last evening, patient had an episode of tachycardia in the 140s that could possibly be atrial flutter. Patient was asymptomatic during that time. He denies any history of atrial fibrillation or atrial flutter. Patient has been started on heparin gtt. EKG paced rhythm with intraventricular conduction delay Chest x-ray: Favor bilateral consolidation and small pleural effusion greater on the right. VQ scan intermediate probablity for PE WBC 6.5, hemoglobin 12.6. Sodium 139, potassium 4.2, BUN 39 creatinine 1.67. T roponin 0.055, 0.089, 0.089. proBNP 2180. Home cardiac medications: Aspirin 81 mg daily, Coreg 12.5 mg twice daily, Plavix 75 mg daily, Farxiga 10 mg daily, fenofibrate 160 mg daily, Lasix 20 mg daily, Nitrostat as needed, Ranexa 500 mg twice daily, rosuvastatin 20 mg daily, Entresto 24 mg - 26 mg 1 twice daily, spironolactone 25 mg daily. Echocardiogram performed 02/12/2024 reveals EF of 20 to 25% with enlarged LV. 02/13 Patient is seen today in follow-up. He atrial tachycardia until greater than 171 beats any chest pain or chest pressure and no shortness of breath. Hemoglobin is 12.1. Blood pressure 112/67, heart rate between 77 and 97. BUN 38 creatinine 1.72. Patient had episode of heart racing in the 130s upon review it appears to be an atrial tachycardia. He is AICD has been interrogated and it does not recognize atrial tachycardia in general above 171 bpm. Patient underwent ultrasound the lower extremities negative for DVT and VQ scan was intermediate probability Physical examination: Gen: This is a a 78-year-old male in no acute distress VS: reviewed HEENT: Head is atraumatic, normocephalic. Pupils equal, round. Sclerae is anicteric. NECK: Supple. No JVD. LUNGS: Clear to auscultation. No wheezes or rhonchi. No intercostal retractions. HEART: Regular rate and rhythm. No murmur. ABDOMEN: Soft No tenderness. EXTREMITIES: No pedal edema. No calf tenderness. NEUROLOGICAL: Patient is awake, alert and oriented x3. 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 Patient was seen and examined. Objective - Vital Signs Vital signs: Vital Signs Temp 97.4 F L 02/14/24 09:01 Pulse 77 02/14/24 09:01 Resp 18 02/14/24 09:01 BP 112/67 02/14/24 09:01 Pulse Ox 97 02/14/24 09:01 FiO2 Intake & Output 02/13/24 02/14/24 02/14/24 18:59 06:59 18:59 Intake Total 347.258 Output Total 800 825 Balance -800 -825 347.258 Weight 84.3 kg Intake: Intake, IV Titration 229.258 Amount Heparin Sod,Pork in 0.45% 229.258 NaCl 25,000 unit In 0.45 % NaCl 1 250ml.bag @ 18 UNITS/KG/HR 14.696 mls/hr IV .Q17H1M [facility] Rx#: [id number] Oral 118 Output: Urine 800 825 Other: Voiding Method Urinal Urinal # Voids 1 - Labs CBC & Chem 7: 02/14/24 08:10 02/14/24 08:10 Labs: Abnormal Lab Results - Last 24 Hours (Table) 02/13/24 02/13/24 02/13/24 Range/Units 12:23 16:37 20:20 RBC (4.30-5.90) m/uL Hgb (13.0-17.5) gm/dL Hct (39.0-53.0) % APTT (22.0-30.0) sec Chloride (98-107) mmol/L Carbon Dioxide (22-30) mmol/L BUN (9-20) mg/dL Creatinine (0.66-1.25) mg/dL Glucose (74-99) mg/dL POC Glucose (mg/dL) 113 H 314 H 178 H (70-110) mg/dL 02/14/24 02/14/24 02/14/24 Range/Units 00:08 06:00 08:10 RBC 4.16 L (4.30-5.90) m/uL Hgb 12.1 L (13.0-17.5) gm/dL Hct 38.4 L (39.0-53.0) % APTT 60.5 H (22.0-30.0) sec Chloride (98-107) mmol/L Carbon Dioxide (22-30) mmol/L BUN (9-20) mg/dL Creatinine (0.66-1.25) mg/dL Glucose (74-99) mg/dL POC Glucose (mg/dL) 134 H (70-110) mg/dL 02/14/24 02/14/24 Range/Units 08:10 08:10 RBC (4.30-5.90) m/uL Hgb (13.0-17.5) gm/dL Hct (39.0-53.0) % APTT 92.4 H (22.0-30.0) sec Chloride 108 H (98-107) mmol/L Carbon Dioxide 21 L (22-30) mmol/L BUN 38 H (9-20) mg/dL Creatinine 1.72 H (0.66-1.25) mg/dL Glucose 232 H (74-99) mg/dL POC Glucose (mg/dL) (70-110) mg/dL
[2024-02-14 16:06] LABS: Glucose,Whole Blood 154 mg/dL (70-110)
[2024-02-14] MEDS ORDERED: carvediloL 12.5 MG TAB PO SCH (21:00)
== END 2024-02-14 16:51 | disposition home or self-care (01) ==
LOC: EC 10:55 → 6NMEDSUR 13:48 → 3SCARD 17:40
PROVIDERS: ADMIT Internal Medicine; ATTEND Internal Medicine
DX: R07.89 Other chest pain (principal); R79.89 Other specified abnormal findings of blood chemistry; R00.0 Tachycardia, unspecified; I13.0 Hypertensive heart and chronic kidney disease with heart failure and stage 1 through stage 4 chronic kidney disease, or unspecified chronic kidney disease; I50.22 Chronic systolic (congestive) heart failure; N18.32 Chronic kidney disease, stage 3b; E11.22 Type 2 diabetes mellitus with diabetic chronic kidney disease; D63.1 Anemia in chronic kidney disease; K21.9 Gastro-esophageal reflux disease without esophagitis; E78.5 Hyperlipidemia, unspecified; G47.30 Sleep apnea, unspecified; E11.51 Type 2 diabetes mellitus with diabetic peripheral angiopathy without gangrene; I25.10 Atherosclerotic heart disease of native coronary artery without angina pectoris; I25.5 Ischemic cardiomyopathy; I25.2 Old myocardial infarction; M25.511 Pain in right shoulder; Z86.73 Personal history of transient ischemic attack (TIA), and cerebral infarction without residual deficits; Z95.5 Presence of coronary angioplasty implant and graft; Z95.810 Presence of automatic (implantable) cardiac defibrillator; Z79.4 Long term (current) use of insulin; Z79.84 Long term (current) use of oral hypoglycemic drugs; Z79.82 Long term (current) use of aspirin; Z79.899 Other long term (current) drug therapy; Z79.02 Long term (current) use of antithrombotics/antiplatelets
CPT/HCPCS: 96366 ×3; 96365; 96375; 99285; 36415; 93005; 85379; 83880; 80053 ×3; 84443; 83735 ×3; 84484; 85025 ×2; 85027; 85610; 85730 ×3; 83036; 73030; 71046; 93970; 78582; G0378 ×4; C8929; A9540; A9567; Q9957; J1644 ×4; 93306

== ENCOUNTER → 2025-05-02 | Outpatient (CLI) | payer MEDICARE, BC ==
--- NOTE | 2025-05-02 09:17 | XR ---
EXAMINATION TYPE: XR Hip Complete LT DATE OF EXAM: 05/02/2025 9:12 AM INDICATION: Patient age:Male; 79 years old; Reason for study: [id number] LT HIP PAIN; [facility]. pain COMPARISON: None. TECHNIQUE: The left hip was examined in the frontal and lateral projections and a AP pelvis. FINDINGS: No evidence of any acute osseous pathology, joint dislocation, or soft tissue swelling. 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 Vascular sclerosis. IMPRESSION: 1. No acute osseous pathology. 2. Cam-type morphology of the femoral head. Correlate clinically for femoroacetabular impingement. [facility], , 05/02/2025 9:15 AM
== END | disposition home or self-care (01) ==
LOC: RADXRYALE 08:59
PROVIDERS: ATTEND Family Medicine
DX: M25.552 Pain in left hip (principal)
CPT/HCPCS: 73502